=== PATIENT | male | born 1940 | race Caucasian/White ===

== ENCOUNTER 2017-07-12 09:26 | Observation (INO) ==
--- NOTE | 2017-07-12 09:55 | Emergency Department Note ---
Disposition Clinical Impression: COPD exacerbation, Hypokalemia Disposition: Admitted As Inpatient Condition: Good Forms: ED Satisfaction Letter Time of Disposition: 12:07 SOB HPI - General Chief Complaint: ED Shortness of Breath/Dyspnea Stated Complaint: TOMAS Time Seen by Provider: 07/12/17 09:36 Source: patient Limitations: no limitations Nursing Notes Reviewed: Yes Vital Signs Reviewed: Yes - History of Present Illness 76 year old male with history of COPD prsenst to the eD withh complaints of chest discomfort that is difficult to describe and states that he has been couhgin up white/clear phlegm without fever or hempotysis. although he is trahcyardiac to 108 at [facility] and has audible wheezes posterioerly. PAtinet states that this is simliar to the way he prsentsed when he had pneumonia/ bronchitis in the past. Lauranet states that he needed he supplemental oxygen at home to help with his dyspnea although he doenst typically need it on a regualr basis and has done brethign treatments at home without improvement. No exposure to the flu or any other sick contacts - Related Data Home Medications Medication Instructions Recorded Confirmed Albuterol Sulfate [Albuterol 1 - 2 puff IH Q4HR PRN 01/13/15 02/07/15 Inhaler] Aspirin Enteric Coated [Aspirin EC] 81 mg PO QAM 01/13/15 02/07/15 Iron/Lysine/Vit B Comp/FA 237 ml PO BID PRN 01/13/15 02/07/15 [Nutrivit Liquid] Furosemide [Lasix] 40 mg PO DAILY 02/07/15 02/07/15 Previous Rx's Medication Instructions Recorded Ipratropium/Albuterol Neb [Duoneb] 3 ml IH Q6HR 30 Days vial.neb 02/11/15 PredniSONE 10 mg PO DAILY #30 tablet 02/11/15 Amoxicillin/Clavulanate [Augmentin] 875 mg PO BIDWM 12 Days tablet 02/13/15 Allergies Allergy/AdvReac Type Severity Reaction Status Date / Time No Known Allergies Allergy Verified 01/13/15 16:00 Constitutional: Denies: fever, chills, weakness, weight change Eyes: Denies: eye pain, eye discharge, vision change ENT ED: Denies: ear pain, throat pain, dental pain, hearing loss, epistaxis, congestion, dysphagia Cardiovascular: Reports: chest pain, palpitations. Denies: dyspnea on exertion , edema, syncope Respiratory: Reports: cough, wheezes. Denies: dyspnea, hemoptysis, stridor Gastrointestinal: Denies: abdominal pain, nausea, vomiting, diarrhea, constipation, hematemesis, melena, hematochezia Genitourinary: Denies: urgency, dysuria, frequency, hematuria Musculoskeletal: Denies: back pain, neck pain, arthralgia, myalgia Integumentary: Denies: rash, abrasion, lesions Neurological: Denies: headache, weakness, numbness, paresthesias, confusion, abnormal gait, vertigo Psychiatric: Denies: anxiety, depression, suicidal thoughts, homicidal thoughts , auditory hallucinations, visual hallucinations Endocrine: Denies: fatigue Hematological/Lymphatic: Denies: easy bleeding, easy bruising Allergic/Immunologic: Denies: facial swelling, urticaria Past Medical History - Past Medical History Medical history: Reports: COPD Surgical history: Reports: cholecystectomy, other Psychiatric history: Reports: no psych history - Social History Smoking Status: Current every day smoker Smokeless Tobacco Status: Yes Alcohol use: Reports: none Drug use: Reports: none Physical Exam - General Limitations: no limitations General appearance: alert, in no apparent distress - Head Head exam: atraumatic, normocephalic, normal inspection - Eye Eye exam: Present: normal appearance, PERRL, EOMI - Expanded Eye Exam Pupils: Bilateral: reactive - ENT ENT exam: normal exam, normal oropharynx, mucous membranes moist - Expanded ENT Exam External ear exam: Present: normal external inspection Mouth exam: Present: normal external inspection Teeth exam: Present: normal inspection Throat exam: Present: normal inspection - Neck Neck exam: Present: normal inspection, full ROM, trachea midline - Chest Chest inspection: Present: normal inspection, symmetric chest wall rise - Respiratory Respiratory exam: Present: normal lung sounds bilaterally, wheezes - Cardiovascular Cardiovascular exam: Present: normal rhythm, tachycardia, normal heart sounds - Abdominal Exam Abdominal exam: Present: soft, Non-Tender. Absent: tenderness, distention, guarding, rebound, rigidity - Extremities Exam Extremities exam: Present: normal inspection, full ROM. Absent: tenderness, pedal edema - Expanded Upper Extremity Exam Shoulder exam: Present: normal inspection, full ROM Arm exam: Present: normal inspection, full ROM Elbow exam: Present: normal inspection, full ROM Forearm/Wrist exam: Present: normal inspection, full ROM Hand exam: Present: normal inspection, full ROM Vascular exam: Normal: capillary refill, radial pulse - Expanded Lower Extremity Exam Hip/Pelvis exam: Present: normal inspection, full ROM Upper leg exam: Present: normal inspection, full ROM Knee exam: Present: normal inspection, full ROM Lower leg exam: Present: normal inspection, full ROM Ankle exam: Present: normal inspection, full ROM Foot/toe exam: Present: normal inspection, full ROM Neurovascular/Tendon exam: Absent: motor deficit, sensory deficit, tendon deficit - Back Exam Back exam: Present: normal inspection, full ROM. Absent: tenderness - Neurological Exam Neurological exam: Present: alert, oriented X3 - Expanded Neurological Exam Patient oriented to: Present: person, place, time Coma Scale Eye Opening: Spontaneous Coma Scale Motor Response: Obeys Commands Coma Scale Verbal Response: Oriented Coma Scale Total: 15 - Psychiatric Psychiatric exam: Present: normal affect, normal mood - Skin Skin exam: Present: warm, dry, intact, normal color Course Course Narrative: we iwll do breathing treatmnts, solumedrol. and CTA chest to rule out PN vs PE. - Consultations Consultation #1: discussed case with Dr. Sanchez and he accepts ptinet for admission. PAtine has been updated and is agreeable to plan. Time: 12:07 Vital Signs Temperature 98.0 F 07/12/17 09:29 Pulse Rate 108 07/12/17 09:29 Respiratory Rate 24 07/12/17 09:29 Blood Pressure 125/75 07/12/17 09:29 O2 Sat by Pulse Oximetry 95 07/12/17 09:29 Temperature 98.0 F 07/12/17 09:29 Pulse Rate 65 07/12/17 11:07 Respiratory Rate 20 07/12/17 11:07 Blood Pressure 136/75 07/12/17 11:07 O2 Sat by Pulse Oximetry 97 07/12/17 11:07 Oxygen Delivery Oxygen Delivery Room Air Shortness of Breath/Dyspnea - Medical Records Medical records reviewed: Yes I reviewed the patient's medical records. - Lab Data Lab results reviewed: Yes I reviewed the patient's lab results. Result diagrams: 07/12/17 10:02 07/12/17 10:02 Lab Results 07/12/17 07/12/17 07/12/17 Range/Units 10:02 10:02 10:02 WBC 9.2 (4.3-11.1) K/mcL RBC 5.47 (4.19-5.50) M/mcL Hgb 17.1 H (12.9-16.9) g/dL Hct 51.2 H (37.5-50.1) % MCV 93.6 (83.0-100.0) fL MCH 31.3 (28.0-33.3) pg MCHC 33.4 (31.6-35.5) g/dL RDW 14.6 H (11.5-14.5) % Plt Count 222 (140-400) K/mcL MPV 8.9 L (9.4-12.4) fL Immature Gran % 0.4 (0-4) % Seg Neutrophils % 82.7 % Lymphocytes % 12.0 % Monocytes % 1.6 % Eosinophils % 2.9 % Basophils % 0.4 % Neutrophils # 7.6 (1.6-8.9) K/mcL Lymphocytes # 1.1 (0.6-4.6) K/mcL Monocytes # 0.2 (0.0-1.3) K/mcL Eosinophils # 0.3 (0.0-0.6) K/mcL Basophils # 0.0 (0.0-0.2) K/mcL PT 11.3 (9.4-12.1) Seconds INR 1.1 APTT 30.0 (26.0-36.0) Seconds Sodium 138 (136-145) mEq/L Potassium 2.9 L (3.5-5.1) mEq/L Chloride 101 (98-107) mEq/L Carbon Dioxide 30 H (23-29) mEq/L BUN 9 (8-23) mg/dL Creatinine 1.20 (0.70-1.30) mg/dL Est GFR ( Amer) > 60 (> 60) Est GFR (Non-Af Amer) 59 L (> 60) BUN/Creatinine Ratio 8 (6-26) Glucose 146 H (70-105) mg/dL Calculated Osmolality 287 (280-300) Calcium 9.0 (8.6-10.3) mg/dL Troponin I (< 0.04) ng/mL 07/12/17 Range/Units 10:02 WBC (4.3-11.1) K/mcL RBC (4.19-5.50) M/mcL Hgb (12.9-16.9) g/dL Hct (37.5-50.1) % MCV (83.0-100.0) fL MCH (28.0-33.3) pg MCHC (31.6-35.5) g/dL RDW (11.5-14.5) % Plt Count (140-400) K/mcL MPV (9.4-12.4) fL Immature Gran % (0-4) % Seg Neutrophils % % Lymphocytes % % Monocytes % % Eosinophils % % Basophils % % Neutrophils # (1.6-8.9) K/mcL Lymphocytes # (0.6-4.6) K/mcL Monocytes # (0.0-1.3) K/mcL Eosinophils # (0.0-0.6) K/mcL Basophils # (0.0-0.2) K/mcL PT (9.4-12.1) Seconds INR APTT (26.0-36.0) Seconds Sodium (136-145) mEq/L Potassium (3.5-5.1) mEq/L Chloride (98-107) mEq/L Carbon Dioxide (23-29) mEq/L BUN (8-23) mg/dL Creatinine (0.70-1.30) mg/dL Est GFR ( Amer) (> 60) Est GFR (Non-Af Amer) (> 60) BUN/Creatinine Ratio (6-26) Glucose (70-105) mg/dL Calculated Osmolality (280-300) Calcium (8.6-10.3) mg/dL Troponin I < 0.03 (< 0.04) ng/mL - Radiology Data Radiology results reviewed: Yes I reviewed the patient's radiology results. - EKG Data EKG attestation: Yes I reviewed and interpreted this EKG. EKG results narrative: sinus tacycardia with rate of 108. NO STEMI. normal intervals. no change from
[2017-07-12] MEDS ORDERED: 0.9 % Sodium Chloride 1,000 ML IVC ONE (09:59)
[2017-07-12] MEDS ORDERED: Ipratropium/Albuterol Neb 3 ML IH ONE (09:59)
[2017-07-12] MEDS ORDERED: methylPREDNISolone 125 MG/2 ML VIAL IVP ONE (09:59)
[2017-07-12 10:22] LABS: Basophils % 0.4 %; Eosinophils # 0.3 K/mcL (0.0-0.6); Eosinophils % 2.9 %; Hematocrit 51.2 % (37.5-50.1); Hemoglobin 17.1 g/dL (12.9-16.9); Immature Granulocytes % 0.4 % (0-4); Lymphocytes # 1.1 K/mcL (0.6-4.6); Mean Corpuscular HGB Conc 33.4 g/dL (31.6-35.5); Mean Corpuscular Hemoglobin 31.3 pg (28.0-33.3); Mean Corpuscular Volume 93.6 fL (83.0-100.0); Mean Platelet Volume 8.9 fL (9.4-12.4); Monocytes # 0.2 K/mcL (0.0-1.3); Monocytes % 1.6 %; Neutrophils # 7.6 K/mcL (1.6-8.9); Platelet Count 222 K/mcL (140-400); Red Blood Count 5.47 M/mcL (4.19-5.50); Red Cell Distribution Width 14.6 % (11.5-14.5); Segmented Neutrophils % 82.7 %
[2017-07-12 10:25] LABS: INR 1.1; Prothrombin Time 11.3 Seconds (9.4-12.1)
[2017-07-12 10:35] LABS: BUN/Creatinine Ratio 8 (6-26); Blood Urea Nitrogen 9 mg/dL (8-23); Carbon Dioxide 30 mEq/L (23-29); Chloride 101 mEq/L (98-107); Glucose 146 mg/dL (70-105); Osmolality,Calculated 287 (280-300); Potassium 2.9 mEq/L (3.5-5.1); Sodium 138 mEq/L (136-145); eGFR For African Americans > 60 (> 60); eGFR For Non-African Americans 59 (> 60)
[2017-07-12] MEDS ORDERED: Naloxone 0.4 MG/ML INJ IVP PRN (14:07)
[2017-07-12] MEDS ORDERED: Potassium Chloride 20 MEQ, Lidocaine 1% 2 ML in D5% in Water 250 ML IVPB ONE (14:20)
[2017-07-12] MEDS ORDERED: Levofloxacin 750 MG/150 ML 750 MG/150 ML BAG IVPB SCH (15:00)
[2017-07-12] MEDS: MethylPREDNISolone 40 MG/ML VIAL IVP SCH ×2 (15:06→23:02)
--- NOTE | 2017-07-12 15:35 | Internal Med History&Physical ---
<Rickie Loera - Last Filed: 07/12/17 19:36> Date of Encounter: 07/12/17 Time of Encounter: 13:30 Assessment and Plan (1) Acute exacerbation of chronic obstructive airways disease Current visit: Yes Status: Acute Acute exacerbation of COPD. CTA of chest negative for PE. Solumedrol 40 mg Q8. DuoNebs Q6 scheduled. Mucinex PO for cough. Levaquin for bronchitis infection coverage. Sputum culture and respiratory infection panel ordered. Will adjust abx coverage if warranted. Supplemental O2 w/titration and SpO2 monitoring. Continuous tele. Patient discussed with Dr. Sanchez is in agreement with plan of care. Patient is at high risk for respiratory distress/failure and further morbidity based on current symptoms, long-term history of COPD, current tobacco abuse, history, and risk factors. Observation. (2) Loss of appetite Current visit: Yes Status: Acute Acute MARY over the past several weeks. Pt. and sister report reduced intake. Monitor I&O and daily weight. Nutrition consult ordered for PO supplementation. Pt. reports liking chocolate Ensure. Regular diet. (3) Hypokalemia Current visit: Yes Status: Acute Acute hypokalemia w/potassium of 2.9 on admission. Patient given 40 by mouth mEq of potassium in ED. 20 mEq IVPB potassium w/lidocaine to f/u. Potassium level at 16:00. Will add 40 PO mEq additional if needed. Monitor pt. and f/u labs. Continuous tele. (4) Abnormal chest xray Current visit: Yes Status: Acute 1-V CXR today shows suspected scarring within the right upper lung. No focal infiltrate. Small left pleural effusion versus pleural parenchymal scarring. Monitor on OP basis. (5) DVT prophylaxis Current visit: Yes Status: Acute Heparin 5000 units subcutaneous every 8 for DVT prophylaxis. Monitor patient for signs of bleeding. Internal Medicine - H&P: HPI Chief complaint: SOB/Dyspnea Admitted From: Emergency Dept Plans for Post Hospital Care: Home History of present illness: Mr. Menjivar is a 76 year old male w/medical hx of COPD presents from the ED w/ chief complaint of shortness of breath and dyspnea that began on Tuesday and worsened last night. Patient reports from oxygen use via nasal cannula at 2 L. Patient also reported pressure in centralized chest without radiation as well as cough with white sputum production. Uses nebulizer at home. Patient reports shortness of breath, dyspnea, unsteadiness on his feet, cough, and reduced appetite but denies recent illness, fever, chills, nausea, vomiting, palpitations, headache, changes in vision, unusual bleeding, numbness, tingling , weakness, fatigue, dizziness, lightheadedness, pre-syncope, or syncope. Past Med Surg Social Fam HX - Past Medical History Source: patient, old records reviewed, obtained from family Medical history: COPD Psychiatric history: no psych history - Past Surgical History Surgical History: cholecystectomy, other - Social History Smoking Status: Current every day smoker Packs per day: 1 PPD Smokeless Tobacco Status: Yes Alcohol use: none Drug use: none Occupational status: retired Current living situation: Home, With Family Activity Level: Independent ambulation Recent Out of Country Travel Within the Last 8 Weeks: No Exposure or Possible Exposure to Illness During Travel: No - Family History Mother Race: Family Member Ethnicity: Non- Living Status: Age at : 56 Cause of : Liver cancer Hx Family Cancer: Yes (Liver) Hx Family Endocrine Disorder: Yes (Gallstones) Father Race: Family Member Ethnicity: Non- Living Status: Age at : 74 Cause of : Stroke complications Hx Family Cardiac Disorders: Yes (Stroke) Brother Race: Family Member Ethnicity: Non- Living Status: Age at : 75 Cause of : Surgery complications Hx Family Endocrine Disorder: Yes (Gallstones) Sister Race: Family Member Ethnicity: Non- Living Status: Still Living Hx Family Cardiac Disorders: Yes (Stroke) Internal Medicine - H&P: Meds Albuterol Sulfate [Albuterol Inhaler] 1 - 2 puff IH Q4HR PRN 01/13/15 [History] Aspirin Enteric Coated [Aspirin EC] 81 mg PO QAM 01/13/15 [History] Ipratropium/Albuterol Neb [Duoneb] 3 ml IH Q6HR 30 Days vial.neb 02/11/15 [Rx] Fluticasone/Vilanterol [Breo Ellipta 100-25 Mcg INH] 1 puff IH DAILY 07/12/17 [ History] Isosorbide DInitrate [Isosorbide Dinitrate] 10 mg PO BID 07/12/17 [History] 3 Allergy/AdvReac Type Severity Reaction Status Date / Time No Known Allergies Allergy Verified 01/13/15 16:00 All Systems PM: A 10-system review of systems was performed and is negative for pertinent findings except as documented above in the HPI. - Constitutional Constitutional: as per HPI, anorexia, no chills, no fever(s), no night sweats - EENT Eyes: no change in vision, no discharge, no pain, no photophobia Ears: no ear discharge, no ear pain, no tinnitus Nose, mouth and throat: no dysphagia, no nasal discharge, no neck pain, no sore throat - Breasts Breasts: as per HPI - Cardiovascular Cardiovascular ROS IM: as per HPI, dyspnea, dyspnea on exertion, no chest pain ( Chest pressure w/SOB), no diaphoresis, no lightheadedness, no palpitations, no syncope - Respiratory Respiratory: as per HPI, cough, dyspnea, dyspnea on exertion, wheezing, pain on inspiration, no excessive phlegm production - Gastrointestinal Gastrointestinal: as per HPI, diarrhea (R/t Crohn's dx), no abdominal pain, no hematemesis, no hematochezia, no melena, no nausea, no vomiting - Genitourinary Genitourinary ROS male: as per HPI - Musculoskeletal Musculoskeletal ROS IM: no numbness, no tingling - Integumentary Integumentary IM: no rash, no unusual bruising - Neurological Neurological ROS: as per HPI, frequent falls, no confusion, no convulsions, no focal weakness, no numbness, no tingling, no tremor(s) - Psychiatric Psychiatric: as per HPI - Endocrine Endocrine IM: as per HPI - Hematologic/Lymphatic Hematologic/Lymphatic: no easy bruising - Allergic/Immunologic Allergic/Immunologic: as per HPI - Constitutional Vitals: Temp Pulse Resp BP Pulse Ox 98.2 F 86 16 128/60 94 07/12/17 14:12 07/12/17 14:12 07/12/17 14:12 07/12/17 14:12 07/12/17 14:12 General appearance: Present: cooperative, A&O X 3, pleasant, no acute distress, answers questions appropriately - Head Head exam: Present: atraumatic, normocephalic - Eye Eye exam: Present: PERRL, conjuntiva pink, sclera anicteric Pupils: Present: PERRL - ENT ENT exam: Present: normal exam - Neck Neck exam general surgery: Present: supple, trachea midline. Absent: lymphadenopathy - Respiratory Respiratory exam: Present: accessory muscle use, wheezes (Bilaterally all lobes) . Absent: rales, rhonchi - Cardiovascular Cardiovascular exam: Present: +S1, +S2, tachycardia. Absent: diastolic murmur, gallop, rubs, systolic murmur - GI/Abdominal GI/Abdominal exam: Present: normal bowel sounds, soft, no peritoneal signs. Absent: distended, tenderness - Rectal Rectal exam: Present: deferred - Additional comments: exam deferred. - Extremities Exam Extremities exam: Present: warm, radial pulses palpable and symmetrical. Absent : calf tenderness, cyanotic, pedal edema - Back Exam Back exam: Present: normal inspection - Neurological Exam Neurological exam: Present: CN II-XII intact, oriented X3, no focal deficits. Absent: pronater drift, facial droop, speech deficit - Psychiatric Psychiatric exam: Present: normal affect, normal mood - Skin Skin exam: Present: dry, intact Internal Med - H&P Results - Labs CBC & Chem 7: 07/12/17 10:02 07/12/17 16:04 - EKG Data EKG shows normal: sinus rhythm Rate: tachycardia - EKG Data Prior EKG available for review: yes Interpretation IM: suggestive of ischemia EKG comments: 07/12/17 15:41 EKG dated 02/07/15 shows NSR, PACs. EKG dated 07/12/17 shows sinus tachycardia, indeterminate axis, possible inferior myocardial infarction (probably old). - Diagnostic Studies Chest x-ray Additional comments: Impressions Chest X-Ray 07/12/17 09:39 IMPRESSION: 1. Suspected scarring within the right upper lung. No focal infiltrate. 2. Small left pleural effusion versus pleuroparenchymal scarring. D/ / Umberto Howard MD / Umberto Howard MD Interpreting Provider: Umberto Howard MD Other Images Additional comments: Impressions Chest CTA 07/12/17 09:39 IMPRESSION: 1. No evidence for acute pulmonary embolism. 2. Moderate centrilobular emphysema with generalized patchy ground-glass attenuation of the lungs suggesting air trapping. 3. Residual pleural-parenchymal fibrotic areas in the right upper lobe and posterior basal lower lobes where there is minor traction bronchiectasis. D/ / Nikko Rivera MD / Nikko Rivera MD Interpreting Provider: Nikko Rivera MD <Nasir Sanchez - Last Filed: 07/12/17 22:25> Date of Encounter: 07/12/17 Internal Medicine - H&P: HPI History of present illness: Mr. Menjivar is a 76 year old male All Systems PM: A 10-system review of systems was performed and is negative for pertinent findings except as documented above in the HPI. - Constitutional Vitals: Temp Pulse Resp BP Pulse Ox 98.1 F 88 17 156/73 95 07/12/17 19:07 07/12/17 19:07 07/12/17 21:24 07/12/17 19:07 07/12/17 21:24 Internal Med - H&P Results - Labs CBC & Chem 7: 07/12/17 10:02 07/12/17 16:04 Labs: BMP 07/12/17 16:04 Potassium 3.5 Cardiac Enzymes 07/12/17 Range/Units 16:04 Troponin I < 0.03 (< 0.04) ng/mL - Attending Attestation I have personally performed a face to face evaluation on this patient. I have reviewed and agree with the care plan. History and Exam by me shows: Patient presented to the hospital for worsening shortness of breath for one day. He has a history of COPD. On exam he has bilateral expiratory wheezes and prolonged expiratory phase. Heart is regular. Abdomen is soft. There is no lower extremity edema. Plan: We will treat for COPD exacerbation with IV steroids, supplemental oxygen , inhaled albuterol and ipratropium and oral Levaquin. For hypokalemia will repeat with IV and oral potassium. Check potassium and magnesium level in the morning.
[2017-07-12] MEDS: Nicotine 14 MG PATCH.TD24 TD SCH (15:38)
[2017-07-12] MEDS: Ipratropium/Albuterol Neb 3 ML IH SCH ×2 (15:55→21:23)
[2017-07-12] MEDS: *HR* Heparin 5,000 UNIT/ML VIAL SQ SCH (20:13)
[2017-07-13] MEDS: Ipratropium/Albuterol Neb 3 ML IH SCH ×4 (03:54→21:20)
[2017-07-13] MEDS: *HR* Heparin 5,000 UNIT/ML VIAL SQ SCH ×3 (05:17→23:04)
[2017-07-13 05:24] LABS: Basophils % 0.1 %; Immature Granulocytes % 0.6 % (0-4); Lymphocytes # 0.5 K/mcL (0.6-4.6); Lymphocytes % 5.9 %; Mean Corpuscular Hemoglobin 31.4 pg (28.0-33.3); Mean Corpuscular Volume 92.5 fL (83.0-100.0); Mean Platelet Volume 9.5 fL (9.4-12.4); Monocytes # 0.1 K/mcL (0.0-1.3); Neutrophils # 7.5 K/mcL (1.6-8.9); Platelet Count 180 K/mcL (140-400); Red Blood Count 4.65 M/mcL (4.19-5.50); Red Cell Distribution Width 14.7 % (11.5-14.5); Segmented Neutrophils % 92.4 %
[2017-07-13 05:26] LABS: Hemoglobin 14.6 g/dL (12.9-16.9)
[2017-07-13 05:40] LABS: Hemoglobin A1C 5.5 %
[2017-07-13 05:47] LABS: Alanine Aminotransferase 8 Units/L (7-52); Albumin 3.3 g/dL (3.5-5.7); Albumin/Globulin Ratio 1.3 (1.1-2.2); Alkaline Phosphatase 57 Units/L (34-104); Aspartate Amino Transferase 10 Units/L (13-39); BUN/Creatinine Ratio 10 (6-26); Bilirubin,Total 0.4 mg/dL (0.3-1.0); Blood Urea Nitrogen 13 mg/dL (8-23); Calcium 8.5 mg/dL (8.6-10.3); Carbon Dioxide 23 mEq/L (23-29); Chloride 108 mEq/L (98-107); Chol/HDL Ratio 2.4 (0-4.9); Cholesterol 98 mg/dL (< 200); Globulin 2.6 g/dL (2.4-3.5); Glucose 219 mg/dL (70-105); HDL Cholesterol 41 mg/dL (40-59); LDL Cholesterol,Calculated 38 mg/dL (0-99); Magnesium 1.7 mg/dL (1.6-2.6); Osmolality,Calculated 291 (280-300); Sodium 137 mEq/L (136-145); Total Protein 5.9 g/dL (6.4-8.9); Triglycerides 94 mg/dL (< 150); eGFR For African Americans > 60 (> 60); eGFR For Non-African Americans 56 (> 60)
[2017-07-13] MEDS: MethylPREDNISolone 40 MG/ML VIAL IVP SCH ×3 (08:03→23:04)
[2017-07-13] MEDS: Aspirin Enteric Coated 81 MG Tablet PO SCH (08:03)
[2017-07-13] MEDS: Nicotine 14 MG PATCH.TD24 TD SCH (08:03)
--- NOTE | 2017-07-13 09:12 | Electrocardiograph Report ---
[place] GFRANQ Test Date: 2017-07-12 Pat Name: Bienvenido Menjivar Department: 104 Room: 3B38 Gender: M Statistics Intern: [facility] : 1940 Requested By: Shruthi Oreilly Order Number: [id number] Reading MD: David Quiros MD Measurements Intervals [place] Rate: 104 P: 77 NM: 188 QRS: 96 QRSD: 97 T: 79 QT: 354 QTc: 414 Interpretive Statements SINUS TACHYCARDIA INDETERMINATE AXIS POSSIBLE INFERIOR MYOCARDIAL INFARCTION, PROBABLY OLD ABNORMAL RHYTHM ECG ST depression laterally, consider ischemia, correlate clinically Electronically Signed On 07-13-2017 9:10:44 EST by David Quiros MD
--- NOTE | 2017-07-13 09:19 | Internal Med Progress Note ---
Date of Encounter: 07/13/17 Time of Encounter: 09:15 - Assessment and plan (1) Acute exacerbation of chronic obstructive airways disease Current Visit: Yes Status: Acute Assessment and plan: Assessment patient does have audible wheezes and conversational dyspnea CTA chest negative for any PE. Initiated on Solu-Medrol 40 mg every 8 which we will continue. Mucinex by mouth for cough Levaquin for bronchitis infection coverage Sputum culture, and respiratory panel Oxygen as needed titrating to maintain SPO2 greater than 92% (2) Hypokalemia Current Visit: Yes Status: Acute Assessment and plan: Presently 4.0 this a.m. we will continue to monitor and replace as needed (3) Abnormal chest xray Current Visit: Yes Status: Acute Assessment and plan: 1-V CXR today shows suspected scarring within the right upper lung. No focal infiltrate. Small left pleural effusion versus pleural parenchymal scarring. Monitor on outpatient basis. (4) Loss of appetite Current Visit: Yes Status: Acute Assessment and plan: Acute MARY the past several weeks and monitor intake and output daily weights nutrition consult ordered for by mouth supplementation regular diet. (5) DVT prophylaxis Current Visit: Yes Status: Acute Assessment and plan: Heparin subcutaneous - Time Spent With Patient less than 15 minutes - Subjective Interval history: having SOB on exertion noted conversational dyspnes, denies any CP has nonproductive cough Feels a little better not back at baseline - Constitutional Vitals: Temp Pulse Resp BP Pulse Ox 97.2 F L 62 15 157/75 94 07/13/17 07:17 07/13/17 07:17 07/13/17 07:17 07/13/17 07:17 07/13/17 07:17 General appearance: Present: cooperative, A&O X 3, pleasant, no acute distress, answers questions appropriately - Head Head exam: Present: atraumatic, normocephalic - Eye Eye exam: Present: PERRL, conjuntiva pink, sclera anicteric Pupils: Present: PERRL - Neck Neck exam general surgery: Present: supple, trachea midline. Absent: lymphadenopathy - Respiratory Respiratory exam: Present: wheezes. Absent: accessory muscle use, rales, rhonchi - Cardiovascular Cardiovascular exam: Present: RRR, +S1, +S2. Absent: diastolic murmur, gallop, rubs, systolic murmur - GI/Abdominal GI/Abdominal exam: Present: normal bowel sounds, soft, no peritoneal signs. Absent: distended, tenderness - Extremities Exam Extremities exam: Present: warm, radial pulses palpable and symmetrical. Absent : calf tenderness, cyanotic, pedal edema - Neurological Exam Neurological exam: Present: CN II-XII intact, oriented X3, no focal deficits. Absent: pronater drift, facial droop, speech deficit - Skin Skin exam: Present: dry, intact Internal Medicine: Result - Labs CBC & Chem 7: 07/13/17 04:44 07/13/17 04:44 Labs: Short CBC 07/13/17 Range/Units 04:44 WBC 8.1 (4.3-11.1) K/mcL Hgb 14.6 D (12.9-16.9) g/dL Hct 43.0 (37.5-50.1) % Plt Count 180 (140-400) K/mcL Neutrophils # 7.5 (1.6-8.9) K/mcL BMP 07/12/17 07/13/17 16:04 04:44 Sodium 137 Potassium 3.5 4.0 Chloride 108 H Carbon Dioxide 23 BUN 13 Creatinine 1.24 Glucose 219 H Calcium 8.5 L Cardiac Enzymes 07/12/17 07/12/17 Range/Units 16:04 22:18 Troponin I < 0.03 < 0.03 (< 0.04) ng/mL Liver Function 07/13/17 Range/Units 04:44 Total Bilirubin 0.4 (0.3-1.0) mg/dL AST 10 L (13-39) Units/L ALT 8 (7-52) Units/L Alkaline Phosphatase 57 (34-104) Units/L Albumin 3.3 L (3.5-5.7) g/dL - ABG Interpretation ABG results: PT/INR, D-dimer PT 11.3 Seconds (9.4-12.1) 07/12/17 10:02 Consult Discharge Plan - Plan Referrals: Jono Moon DO [Primary Care Provider] -
[2017-07-13] MEDS: (Fluticasone/Vilanterol [Breo Ellipta 100-25 Mcg Inh]) IH SCH (09:40)
[2017-07-13 19:27] LABS: Adenovirus Not Detected (Not Detect); Bordetella Pertussis Not Detected (Not Detect); Chlamydophila pneumoniae Not Detected (Not Detect); Coronavirus 229E Not Detected (Not Detect); Coronavirus HKU1 Not Detected (Not Detect); Coronavirus NL63 Not Detected (Not Detect); Coronavirus OC43 Not Detected (Not Detect); Human Metapneumovirus Not Detected (Not Detect); Human Rhinovirus/Enterovirus Not Detected (Not Detect); Influenza A Subtype 2009 H1 Not Detected (Not Detect); Influenza A Untypeable Not Detected (Not Detect); Influenza B Not Detected (Not Detect); Mycoplasma pneumoniae Not Detected (Not Detect); Parainfluenza Virus 1 Not Detected (Not Detect); Parainfluenza Virus 2 Not Detected (Not Detect); Parainfluenza Virus 3 Not Detected (Not Detect); Parainfluenza Virus 4 Not Detected (Not Detect); Respiratory Syncytial Virus Not Detected (Not Detect)
[2017-07-14] MEDS: Ipratropium/Albuterol Neb 3 ML IH SCH ×5 (04:03→23:19)
[2017-07-14] MEDS: *HR* Heparin 5,000 UNIT/ML VIAL SQ SCH ×3 (05:13→21:35)
[2017-07-14] MEDS: MethylPREDNISolone 40 MG/ML VIAL IVP SCH ×3 (09:23→21:35)
[2017-07-14] MEDS: Nicotine 14 MG PATCH.TD24 TD SCH (09:23)
[2017-07-14] MEDS: Aspirin Enteric Coated 81 MG Tablet PO SCH (09:23)
--- NOTE | 2017-07-14 09:23 | Internal Med Progress Note ---
Date of Encounter: 07/14/17 Time of Encounter: 09:20 - Assessment and plan (1) Acute exacerbation of chronic obstructive airways disease Current Visit: Yes Status: Acute Assessment and plan: Scattered wheezes throughout CTA chest negative for any PE. Solu-Medrol 40 mg every 8 which we will continue. Mucinex by mouth for cough Levaquin for bronchitis infection coverage Sputum culture, and respiratory panel Oxygen as needed titrating to maintain SPO2 greater than 92% (2) Hypokalemia Current Visit: Yes Status: Acute Assessment and plan: monitor and replace (3) Abnormal chest xray Current Visit: Yes Status: Acute Assessment and plan: 1-V CXR today shows suspected scarring within the right upper lung. No focal infiltrate. Small left pleural effusion versus pleural parenchymal scarring. Monitor on outpatient basis. (4) Loss of appetite Current Visit: Yes Status: Acute Assessment and plan: Acute MARY the past several weeks eating well here monitor intake and output daily weights - no weight loss nutrition consult ordered for dietary supplementation regular diet. (5) DVT prophylaxis Current Visit: Yes Status: Acute Assessment and plan: Heparin subcutaneous - Time Spent With Patient less than 15 minutes - Subjective Interval history: having SOB on exertion, denies any CP has nonproductive cough Feels a little better not back at baseline - Constitutional Vitals: Temp Pulse Resp BP Pulse Ox 97.6 F 59 16 166/61 95 07/14/17 06:44 07/14/17 06:44 07/14/17 06:44 07/14/17 06:44 07/14/17 03:11 General appearance: Present: cooperative, A&O X 3, pleasant, no acute distress, answers questions appropriately - Head Head exam: Present: atraumatic, normocephalic - Eye Eye exam: Present: PERRL, conjuntiva pink, sclera anicteric Pupils: Present: PERRL - Neck Neck exam general surgery: Present: supple, trachea midline. Absent: lymphadenopathy - Respiratory Respiratory exam: Present: wheezes. Absent: accessory muscle use, rales, rhonchi - Cardiovascular Cardiovascular exam: Present: RRR, +S1, +S2. Absent: diastolic murmur, gallop, rubs, systolic murmur - GI/Abdominal GI/Abdominal exam: Present: normal bowel sounds, soft, no peritoneal signs. Absent: distended, tenderness - Extremities Exam Extremities exam: Present: warm, radial pulses palpable and symmetrical. Absent : calf tenderness, cyanotic, pedal edema - Neurological Exam Neurological exam: Present: CN II-XII intact, oriented X3, no focal deficits. Absent: pronater drift, facial droop, speech deficit - Skin Skin exam: Present: dry, intact Internal Medicine: Result - Labs CBC & Chem 7: 07/13/17 04:44 07/13/17 04:44 - ABG Interpretation ABG results: PT/INR, D-dimer PT 11.3 Seconds (9.4-12.1) 07/12/17 10:02 Consult Discharge Plan - Plan Referrals: Jono Moon DO [Primary Care Provider] -
[2017-07-14] MEDS: (Fluticasone/Vilanterol [Breo Ellipta 100-25 Mcg Inh]) IH SCH (09:24)
[2017-07-14 11:02] LABS: Basophils % 0.1 %; Hematocrit 42.2 % (37.5-50.1); Hemoglobin 14.2 g/dL (12.9-16.9); Immature Granulocytes % 0.6 % (0-4); Lymphocytes # 0.6 K/mcL (0.6-4.6); Lymphocytes % 5.4 %; Mean Corpuscular HGB Conc 33.6 g/dL (31.6-35.5); Mean Corpuscular Hemoglobin 31.8 pg (28.0-33.3); Mean Corpuscular Volume 94.4 fL (83.0-100.0); Mean Platelet Volume 9.7 fL (9.4-12.4); Monocytes # 0.2 K/mcL (0.0-1.3); Neutrophils # 10.7 K/mcL (1.6-8.9); Platelet Count 205 K/mcL (140-400); Red Blood Count 4.47 M/mcL (4.19-5.50); Red Cell Distribution Width 15.1 % (11.5-14.5); Segmented Neutrophils % 91.9 %
[2017-07-14 11:29] LABS: Alanine Aminotransferase 10 Units/L (7-52); Albumin 3.2 g/dL (3.5-5.7); Albumin/Globulin Ratio 1.2 (1.1-2.2); Alkaline Phosphatase 53 Units/L (34-104); Aspartate Amino Transferase 13 Units/L (13-39); BUN/Creatinine Ratio 15 (6-26); Bilirubin,Total 0.3 mg/dL (0.3-1.0); Blood Urea Nitrogen 18 mg/dL (8-23); Calcium 8.7 mg/dL (8.6-10.3); Carbon Dioxide 28 mEq/L (23-29); Chloride 105 mEq/L (98-107); Globulin 2.6 g/dL (2.4-3.5); Glucose 157 mg/dL (70-105); Osmolality,Calculated 293 (280-300); Potassium 3.9 mEq/L (3.5-5.1); Sodium 139 mEq/L (136-145); Total Protein 5.8 g/dL (6.4-8.9); eGFR For African Americans > 60 (> 60); eGFR For Non-African Americans 57 (> 60)
[2017-07-14] MEDS ORDERED: Levofloxacin 750 MG/150 ML 750 MG/150 ML BAG IVPB SCH (15:00)
[2017-07-14] MEDS ORDERED: hydrALAZINE 10 MG TABLET PO ONE (21:03)
[2017-07-15] MEDS: Ipratropium/Albuterol Neb 3 ML IH SCH ×6 (03:51→23:10)
[2017-07-15] MEDS: *HR* Heparin 5,000 UNIT/ML VIAL SQ SCH ×3 (05:23→22:07)
[2017-07-15] MEDS: MethylPREDNISolone 40 MG/ML VIAL IVP SCH ×2 (05:23→16:48)
[2017-07-15 06:02] LABS: Basophils % 0.1 %; Hematocrit 46.9 % (37.5-50.1); Hemoglobin 15.6 g/dL (12.9-16.9); Immature Granulocytes % 1.1 % (0-4); Lymphocytes # 0.4 K/mcL (0.6-4.6); Lymphocytes % 3.6 %; Mean Corpuscular HGB Conc 33.3 g/dL (31.6-35.5); Mean Corpuscular Hemoglobin 31.8 pg (28.0-33.3); Mean Corpuscular Volume 95.5 fL (83.0-100.0); Mean Platelet Volume 9.5 fL (9.4-12.4); Monocytes # 0.1 K/mcL (0.0-1.3); Monocytes % 1.2 %; Neutrophils # 10.6 K/mcL (1.6-8.9); Platelet Count 210 K/mcL (140-400); Red Blood Count 4.91 M/mcL (4.19-5.50)
[2017-07-15 06:21] LABS: Alanine Aminotransferase 18 Units/L (7-52); Albumin 3.6 g/dL (3.5-5.7); Albumin/Globulin Ratio 1.3 (1.1-2.2); Alkaline Phosphatase 62 Units/L (34-104); Aspartate Amino Transferase 19 Units/L (13-39); BUN/Creatinine Ratio 18 (6-26); Bilirubin,Total 0.4 mg/dL (0.3-1.0); Blood Urea Nitrogen 24 mg/dL (8-23); Calcium 8.5 mg/dL (8.6-10.3); Carbon Dioxide 23 mEq/L (23-29); Chloride 101 mEq/L (98-107); Globulin 2.8 g/dL (2.4-3.5); Glucose 245 mg/dL (70-105); Osmolality,Calculated 296 (280-300); Potassium 3.7 mEq/L (3.5-5.1); Sodium 137 mEq/L (136-145); Total Protein 6.4 g/dL (6.4-8.9); eGFR For African Americans > 60 (> 60); eGFR For Non-African Americans 52 (> 60)
[2017-07-15] MEDS: Aspirin Enteric Coated 81 MG Tablet PO SCH (07:39)
[2017-07-15] MEDS: Nicotine 14 MG PATCH.TD24 TD SCH (07:39)
[2017-07-15] MEDS: (Fluticasone/Vilanterol [Breo Ellipta 100-25 Mcg Inh]) IH SCH (07:40)
[2017-07-15] MEDS ORDERED: 0.9 % Sodium Chloride 500 ML IVC ONE (14:46)
--- NOTE | 2017-07-15 14:57 | Discharge Summary ---
Date of Encounter: 07/16/17 Time of Encounter: 11:08 - Discharge Diagnosis (1) Acute exacerbation of chronic obstructive airways disease Priority: Primary Status: Acute Comments: Continue with bronchodilators at home Steroid taper Follow-up with primary care physician as outpatient (2) Hypokalemia Priority: Secondary Status: Chronic Comments: Resolved (3) Abnormal chest xray Priority: Secondary Status: Acute Comments: -V CXR shows suspected scarring within the right upper lung. No focal infiltrate. Small left pleural effusion versus pleural parenchymal scarring. Monitor on outpatient basis. (4) Loss of appetite Priority: Secondary Status: Acute Comments: Acute MARY the past several weeks he has been eating well during this stay- ensure supplements patient will follow up with primary care physician. (5) Elevated serum creatinine Priority: Secondary Status: Acute Comments: patient given fluid overnight creatinine trending down 1.31 encourage patient to drink fluids will have follow up lab as outpatient and have results sent to PCP - Discharge Medications Prescriptions: predniSONE [Prednisone] 10 mg PO DAILY #30 tab.ds.pk Home Medications: Albuterol Sulfate [Albuterol Inhaler] 1 - 2 puff IH Q4HR PRN 01/13/15 [History] Aspirin Enteric Coated [Aspirin EC] 81 mg PO QAM 01/13/15 [History] Ipratropium/Albuterol Neb [Duoneb] 3 ml IH Q6HR 30 Days vial.neb 02/11/15 [Rx] Fluticasone/Vilanterol [Breo Ellipta 100-25 Mcg INH] 1 puff IH DAILY 07/12/17 [ History] Isosorbide DInitrate [Isosorbide Dinitrate] 10 mg PO BID 07/12/17 [History] predniSONE [Prednisone] 10 mg PO DAILY #30 tab.ds.pk 07/15/17 [Rx] Allergies/Adverse Reactions: 3 Allergy/AdvReac Type Severity Reaction Status Date / Time No Known Allergies Allergy Verified 01/13/15 16:00 Procedures/tests Complete & Pending: Procedures Performed prior 72 hours Category Date Time Status EKG [ECG 12 lead ECG] [ECG] Routine Y 07/14/17 16:21 Ordered Date of admission: 07/12/17 12:38 Primary care physician: Jono Moon DO Consults: 07/12/17 14:10 Consult to Occupational Therapy [CONS] Routine Comment: Evaluate, develop and implement POC Reason for Consult: Patient reports unsteadiness on his feet with ambulation. Please assess patient for ambulation strength, stability, safety, and possible assistive needs for post-discharge planning. Consult to Remote Control Assembler [CONS] Routine Reason for SW Consult: Please assess patient for possible home needs for post -discharge planning. 07/12/17 14:11 Consult to Physical Therapy [CONS] Routine Comment: Evaluate, develop and implement POC Reason for Consult: Patient reports unsteadiness on his feet with ambulation. Please assess patient for ambulation strength, stability, safety, and possible assistive needs for post-discharge planning. 07/12/17 14:16 Consult to Nutrition [CONS] Routine Comment: Milk Chocolate or chocolate Ensure Consulting Provider: NUTRITION Reason for Dietary Consult: PO Supplementation Discharging clinician: Kaur Rivera Anticipated date of discharge: 07/16/17 - Patient Status Disposition: Home, Self-Care Condition: Good Overall status at discharge: patient is progressing back to baseline - Ambulatory Orders Ambulatory Orders: Basic Metabolic Panel [CHEM] Time Frame: 3 Days, Facility: [facility] [place], Location: Lab - Discharge Instructions Follow Up With: Jono Moon DO [Primary Care Provider] - 08/03/17 11:30 am Interval History: Presently his resp state is stable sats 94-95% His creatinine was slightly elevated however it appears it has been elevated in past. We will recheck as outpatient and have labs sent to PCP. Denies any pain in discomfort He is ambulating eating without difficulty Hospital course: Mr. Menjivar is a 76 year old male past medical history of COPD. According to the patient been experiencing increasing shortness of breath and then initiated on Tuesday and worsened Tuesday night. He has oxygen at home, does not normally use it however he required 2 L nasal cannula as well as using nebulizer treatments with little relief. He presented to the ER chest x-ray revealed suspected scarring in the right upper lung, CTA of chest with no acute pulmonary embolism moderate centrilobar emphysema with generalized patchy groundglass attenuation of the lung suggesting air trapping. Patient also reports appetite. Dietary was consulted for nutritional supplements, he was given IV steroids, Levaquin and bronchodilators. His respiratory state has improved. Presently he is able to ambulate with little shortness of breath maintaining oxygen saturation on room air. He will be discharged home on prednisone taper will follow up with his primary care physician after discharge. His creatinine was elevated howevr it appears it has been elevated in the past and it is trending down. We will have him check lab as out patient and have results sent to PCP. Did review medications and follow-ups with patient who verbalized understanding. Presently he is hemodynamically stable and ready for discharge. Time spent discussing smoking cessation with patient: 3 to 10 minutes - Time Spent with Patient Total time spent providing and/or coordinating discharge services: - Constitutional Vitals: Temp Pulse Resp BP Pulse Ox 97.5 F L 76 16 151/67 97 07/15/17 10:59 07/15/17 10:59 07/15/17 11:17 07/15/17 10:59 07/15/17 11:45 General appearance: Present: cooperative, A&O X 3, pleasant, no acute distress, answers questions appropriately - Head Head exam: Present: atraumatic, normocephalic - Eye Eye exam: Present: PERRL, conjuntiva pink, sclera anicteric Pupils: Present: PERRL - Neck Neck exam general surgery: Present: supple, trachea midline. Absent: lymphadenopathy - Respiratory Respiratory exam: Present: CTAB. Absent: accessory muscle use, rales, rhonchi, wheezes - Cardiovascular Cardiovascular exam: Present: RRR, +S1, +S2. Absent: diastolic murmur, gallop, rubs, systolic murmur - GI/Abdominal GI/Abdominal exam: Present: normal bowel sounds, soft, no peritoneal signs. Absent: distended, tenderness - Extremities Exam Extremities exam: Present: warm, radial pulses palpable and symmetrical. Absent : calf tenderness, cyanotic, pedal edema - Neurological Exam Neurological exam: Present: CN II-XII intact, oriented X3, no focal deficits. Absent: pronater drift, facial droop, speech deficit - Skin Skin exam: Present: dry, intact
[2017-07-15 17:05] LABS: Calcium 8.4 mg/dL (8.6-10.3); Carbon Dioxide 25 mEq/L (23-29); Chloride 104 mEq/L (98-107); Potassium 4.5 mEq/L (3.5-5.1); Sodium 136 mEq/L (136-145)
[2017-07-15 17:11] LABS: BUN/Creatinine Ratio 17 (6-26); Blood Urea Nitrogen 23 mg/dL (8-23); Glucose 253 mg/dL (70-105); Osmolality,Calculated 294 (280-300); eGFR For African Americans > 60 (> 60); eGFR For Non-African Americans 51 (> 60)
[2017-07-15] MEDS ORDERED: 0.9 % Sodium Chloride 1,000 ML IVC SCH (17:45)
[2017-07-15] MEDS ORDERED: *HR* Dextrose 50 % in Water (Syg) 50 ML SYRINGE IVP PRN (17:46)
[2017-07-15] MEDS ORDERED: D5% in Water 1,000 ML IVC PRN (17:46)
[2017-07-15] MEDS ORDERED: Dextrose Gel 15 GM/37.5 ML TUBE PO PRN ×2 (17:46)
--- NOTE | 2017-07-15 17:48 | Internal Med Progress Note ---
Date of Encounter: 07/15/17 Time of Encounter: 17:44 - Assessment and plan (1) Acute exacerbation of chronic obstructive airways disease Current Visit: Yes Status: Acute Assessment and plan: Lungs sounds are clear-shortness of breath will continue with steroid taper Mucinex by mouth for cough Levaquin for bronchitis infection coverage Sputum culture, and respiratory panel Oxygen as needed titrating to maintain SPO2 greater than 92% (2) Hypokalemia Current Visit: Yes Status: Chronic Assessment and plan: monitor and replace (3) Abnormal chest xray Current Visit: Yes Status: Acute Assessment and plan: 1-V CXR today shows suspected scarring within the right upper lung. No focal infiltrate. Small left pleural effusion versus pleural parenchymal scarring. Monitor on outpatient basis. (4) Loss of appetite Current Visit: Yes Status: Acute Assessment and plan: Acute MARY the past several weeks eating well here monitor intake and output daily weights - no weight loss nutrition consult ordered for dietary supplementation regular diet. (5) Elevated creatine kinase level Current Visit: Yes Status: Acute Assessment and plan: Has a rising creatinine 1.36 L some gentle IV fluids overnight and recheck in the morning Avoid nephrotoxins (6) Hyperglycemia, drug-induced Current Visit: Yes Status: Acute Assessment and plan: She has had a slight rise in blood sugars he is on steroids we will give a sliding scale for now - Subjective Interval history: Patient is doing well has been ambulating with little shortness of breath stable on room air 95% . Feels that he is back to baseline . Patient had a slight rise and creatinine will give IV fluids overnight and will avoid nephrotoxins. did discuss this with patient who verbalized understanding - Constitutional Vitals: Temp Pulse Resp BP Pulse Ox 98.3 F 90 14 158/75 100 07/15/17 16:08 07/15/17 16:08 07/15/17 16:08 07/15/17 16:08 07/15/17 16:08 General appearance: Present: cooperative, A&O X 3, pleasant, no acute distress, answers questions appropriately - Head Head exam: Present: atraumatic, normocephalic - Eye Eye exam: Present: PERRL, conjuntiva pink, sclera anicteric Pupils: Present: PERRL - Neck Neck exam general surgery: Present: supple, trachea midline. Absent: lymphadenopathy - Respiratory Respiratory exam: Present: CTAB. Absent: accessory muscle use, rales, rhonchi, wheezes - Cardiovascular Cardiovascular exam: Present: RRR, +S1, +S2. Absent: diastolic murmur, gallop, rubs, systolic murmur - GI/Abdominal GI/Abdominal exam: Present: normal bowel sounds, soft, no peritoneal signs. Absent: distended, tenderness - Extremities Exam Extremities exam: Present: warm, radial pulses palpable and symmetrical. Absent : calf tenderness, cyanotic, pedal edema - Neurological Exam Neurological exam: Present: CN II-XII intact, oriented X3, no focal deficits. Absent: pronater drift, facial droop, speech deficit - Skin Skin exam: Present: dry, intact Internal Medicine: Result - Labs CBC & Chem 7: 07/15/17 05:45 07/15/17 16:37 Labs: Short CBC 07/15/17 Range/Units 05:45 WBC 11.3 H (4.3-11.1) K/mcL Hgb 15.6 (12.9-16.9) g/dL Hct 46.9 (37.5-50.1) % Plt Count 210 (140-400) K/mcL Neutrophils # 10.6 H (1.6-8.9) K/mcL BMP 07/15/17 07/15/17 05:45 16:37 Sodium 137 136 Potassium 3.7 4.5 Chloride 101 104 Carbon Dioxide 23 25 BUN 24 H 23 Creatinine 1.33 H 1.36 H Glucose 245 H 253 H Calcium 8.5 L 8.4 L Liver Function 07/15/17 Range/Units 05:45 Total Bilirubin 0.4 (0.3-1.0) mg/dL AST 19 (13-39) Units/L ALT 18 (7-52) Units/L Alkaline Phosphatase 62 (34-104) Units/L Albumin 3.6 (3.5-5.7) g/dL - ABG Interpretation ABG results: PT/INR, D-dimer PT 11.3 Seconds (9.4-12.1) 07/12/17 10:02 Consult Discharge Plan - Plan Referrals: Jono Moon DO [Primary Care Provider] - 08/03/17 11:30 am Prescriptions: predniSONE [Prednisone] 10 mg PO DAILY #30 tab.ds.pk
[2017-07-15] MEDS ORDERED: Insulin LISPRO 300 UNITS/3 ML VIAL SQ SCH (21:00)
[2017-07-16] MEDS: Ipratropium/Albuterol Neb 3 ML IH SCH ×3 (04:14→11:08)
[2017-07-16] MEDS: *HR* Heparin 5,000 UNIT/ML VIAL SQ SCH (05:13)
[2017-07-16] MEDS: MethylPREDNISolone 40 MG/ML VIAL IVP SCH (05:13)
[2017-07-16] MEDS ORDERED: Insulin LISPRO 300 UNITS/3 ML VIAL SQ SCH (07:30)
[2017-07-16] MEDS: Aspirin Enteric Coated 81 MG Tablet PO SCH (07:53)
[2017-07-16] MEDS: Nicotine 14 MG PATCH.TD24 TD SCH (07:54)
[2017-07-16] MEDS: (Fluticasone/Vilanterol [Breo Ellipta 100-25 Mcg Inh]) IH SCH (07:59)
[2017-07-16 08:09] VITALS: BP 147/80
[2017-07-16 08:35] LABS: BUN/Creatinine Ratio 18 (6-26); Blood Urea Nitrogen 24 mg/dL (8-23); Calcium 8.1 mg/dL (8.6-10.3); Carbon Dioxide 25 mEq/L (23-29); Chloride 104 mEq/L (98-107); Glucose 198 mg/dL (70-105); Osmolality,Calculated 294 (280-300); Potassium 4.2 mEq/L (3.5-5.1); Sodium 137 mEq/L (136-145); eGFR For African Americans > 60 (> 60); eGFR For Non-African Americans 53 (> 60)
== END 2017-07-16 11:32 | disposition home or self-care (01) ==
LOC: EMEROO 09:26 → 3BNU 09:26
PROVIDERS: ADMIT Internal Medicine; ATTEND Registered Nurse

== ENCOUNTER 2017-09-08 13:20 | Observation (INO) ==
--- NOTE | 2017-09-08 13:48 | Emergency Department Note ---
Disposition Clinical Impression: Acute exacerbation of chronic obstructive pulmonary disease (COPD), Smoking history, Increased oxygen demand Disposition: Admitted As Inpatient Condition: Fair General Adult HPI - General Chief complaint: ED Shortness of Breath/Dyspnea Stated complaint: TOMAS Time Seen by Provider: 09/08/17 13:44 Source: patient, family Limitations: no limitations - History of Present Illness Pain Scale: 0 - Related Data Home Medications Medication Instructions Recorded Confirmed Albuterol Sulfate [Albuterol 2 puff IH Q4HR PRN 01/13/15 09/08/17 Inhaler] Aspirin Enteric Coated [Aspirin EC] 81 mg PO QAM 01/13/15 09/08/17 Fluticasone/Vilanterol [Breo 1 puff IH DAILY 07/12/17 09/08/17 Ellipta 100-25 Mcg INH] Isosorbide DInitrate [Isosorbide 10 mg PO BID 07/12/17 09/08/17 Dinitrate] Albuterol Neb [Proventil Neb] 2.5 mg IH TID PRN 09/08/17 09/08/17 Cholecalciferol (D-3) [Vitamin D] 1,000 unit PO DAILY 09/08/17 09/08/17 Multivit-Min/FA/Lycopen/Lutein 1 each PO DAILY 09/08/17 09/08/17 [Centrum Silver Tablet] Oxygen 3 l NS AD 09/08/17 09/08/17 Allergies Allergy/AdvReac Type Severity Reaction Status Date / Time No Known Allergies Allergy Verified 01/13/15 16:00 Past Medical History - Past Medical History Medical history: Reports: COPD Surgical history: Reports: cholecystectomy, other Psychiatric history: Reports: no psych history - Social History Smoking Status: Current every day smoker Smokeless Tobacco Status: Yes Alcohol use: Reports: none Drug use: Reports: none Physical Exam - General Limitations: no limitations General appearance: alert, in no apparent distress Course Vital Signs Temperature 98.0 F 09/08/17 13:24 Pulse Rate 100 09/08/17 13:24 Respiratory Rate 26 09/08/17 13:24 Blood Pressure 135/76 09/08/17 13:24 O2 Sat by Pulse Oximetry 95 09/08/17 13:24 Temperature 98.5 F 09/08/17 18:47 Pulse Rate 87 09/08/17 18:47 Respiratory Rate 16 09/08/17 18:47 Blood Pressure 140/77 09/08/17 18:47 O2 Sat by Pulse Oximetry 96 09/08/17 18:47 Oxygen Delivery Oxygen Delivery Nasal Cannula Medical Decision Making - Lab Data Result diagrams: 09/08/17 13:59 09/08/17 13:59 Lab Results 09/08/17 09/08/17 09/08/17 Range/Units 13:59 13:59 13:59 WBC 7.2 (4.3-11.1) K/mcL RBC 5.02 (4.19-5.50) M/mcL Hgb 15.2 (12.9-16.9) g/dL Hct 44.5 (37.5-50.1) % MCV 88.6 (83.0-100.0) fL MCH 30.3 (28.0-33.3) pg MCHC 34.2 (31.6-35.5) g/dL RDW 13.4 (11.5-14.5) % Plt Count 278 (140-400) K/mcL MPV 9.0 L (9.4-12.4) fL Immature Gran % 0.4 (0-4) % Seg Neutrophils % 80.6 % Lymphocytes % 13.5 % Monocytes % 2.1 % Eosinophils % 3.1 % Basophils % 0.3 % Neutrophils # 5.8 (1.6-8.9) K/mcL Lymphocytes # 1.0 (0.6-4.6) K/mcL Monocytes # 0.2 (0.0-1.3) K/mcL Eosinophils # 0.2 (0.0-0.6) K/mcL Basophils # 0.0 (0.0-0.2) K/mcL Nucleated RBCs/100 WBC 0.4 H (0) /100 WBC PT 12.1 (9.4-12.1) Seconds INR 1.1 Sodium 138 (136-145) mEq/L Potassium 3.2 L (3.5-5.1) mEq/L Chloride 103 (98-107) mEq/L Carbon Dioxide 24 (23-29) mEq/L BUN 8 (8-23) mg/dL Creatinine 0.93 (0.70-1.30) mg/dL Est GFR ( Amer) > 60 (> 60) Est GFR (Non-Af Amer) > 60 (> 60) BUN/Creatinine Ratio 9 (6-26) Glucose 167 H (70-105) mg/dL Calculated Osmolality 288 (280-300) Calcium 8.7 (8.6-10.3) mg/dL Magnesium 1.8 (1.6-2.6) mg/dL Total Bilirubin 0.6 (0.3-1.0) mg/dL AST 15 (13-39) Units/L ALT 15 (7-52) Units/L Alkaline Phosphatase 80 (34-104) Units/L Troponin I < 0.03 (< 0.04) ng/mL B-Natriuretic Peptide (Less than 100) pg/mL Serum Total Protein 6.4 (6.4-8.9) g/dL Albumin 3.4 L (3.5-5.7) g/dL Globulin 3.0 (2.4-3.5) g/dL Albumin/Globulin Ratio 1.1 (1.1-2.2) 09/08/17 Range/Units 13:59 WBC (4.3-11.1) K/mcL RBC (4.19-5.50) M/mcL Hgb (12.9-16.9) g/dL Hct (37.5-50.1) % MCV (83.0-100.0) fL MCH (28.0-33.3) pg MCHC (31.6-35.5) g/dL RDW (11.5-14.5) % Plt Count (140-400) K/mcL MPV (9.4-12.4) fL Immature Gran % (0-4) % Seg Neutrophils % % Lymphocytes % % Monocytes % % Eosinophils % % Basophils % % Neutrophils # (1.6-8.9) K/mcL Lymphocytes # (0.6-4.6) K/mcL Monocytes # (0.0-1.3) K/mcL Eosinophils # (0.0-0.6) K/mcL Basophils # (0.0-0.2) K/mcL Nucleated RBCs/100 WBC (0) /100 WBC PT (9.4-12.1) Seconds INR Sodium (136-145) mEq/L Potassium (3.5-5.1) mEq/L Chloride (98-107) mEq/L Carbon Dioxide (23-29) mEq/L BUN (8-23) mg/dL Creatinine (0.70-1.30) mg/dL Est GFR ( Amer) (> 60) Est GFR (Non-Af Amer) (> 60) BUN/Creatinine Ratio (6-26) Glucose (70-105) mg/dL Calculated Osmolality (280-300) Calcium (8.6-10.3) mg/dL Magnesium (1.6-2.6) mg/dL Total Bilirubin (0.3-1.0) mg/dL AST (13-39) Units/L ALT (7-52) Units/L Alkaline Phosphatase (34-104) Units/L Troponin I (< 0.04) ng/mL B-Natriuretic Peptide 83 (Less than 100) pg/mL Serum Total Protein (6.4-8.9) g/dL Albumin (3.5-5.7) g/dL Globulin (2.4-3.5) g/dL Albumin/Globulin Ratio (1.1-2.2) Attestation Statement - Attestation Attestation: I examined this patient and my medical decision-making was reviewed with the Resident Physician. I agree with the documented findings, disposition and treatment plan as described except to the extent set forth below. [id number] time provided Patient arrives complaining of dyspnea. He has a history of intermittent oxygen dependent COPD as well as active tobacco use. He is able to speak in full sentences on exam
[2017-09-08] MEDS ORDERED: Ipratropium/Albuterol Neb 3 ML IH ONE (13:49)
[2017-09-08] MEDS ORDERED: predniSONE 20 MG TABLET PO ONE (13:49)
--- NOTE | 2017-09-08 14:01 | Emergency Department Note ---
Disposition Clinical Impression: Acute exacerbation of chronic obstructive pulmonary disease (COPD), Smoking history, Increased oxygen demand Disposition: Admitted As Inpatient Condition: Fair Forms: ED Satisfaction Letter Time of Disposition: 15:29 General Adult HPI - General Chief complaint: ED Shortness of Breath/Dyspnea Stated complaint: TOMAS Time Seen by Provider: 09/08/17 13:44 Source: patient, family Limitations: no limitations Nursing Notes Reviewed: Yes Vital Signs Reviewed: Yes - History of Present Illness HPI Narrative: Patient is a 76-year-old male that presents to the emergency department with onset of shortness of breath. Patient states that this is been ongoing for the past 4 days and progressively getting worse. Patient states that he does have oxygen at home but does not usually wear it area but he states that he has been requiring 3 L of oxygen at home. Patient states that he has a home health nurse that comes to see him and she listened to his lungs and recommended that he go to the ER. Patient states that he had been admitted to the hospital in July for bronchitis and was required to stay for 4 days. Patient states that this feels similar to that episode. Pain Scale: 0 - Related Data Home Medications Medication Instructions Recorded Confirmed Albuterol Sulfate [Albuterol 1 - 2 puff IH Q4HR PRN 01/13/15 07/12/17 Inhaler] Aspirin Enteric Coated [Aspirin EC] 81 mg PO QAM 01/13/15 07/12/17 Fluticasone/Vilanterol [Breo 1 puff IH DAILY 07/12/17 07/12/17 Ellipta 100-25 Mcg INH] Isosorbide DInitrate [Isosorbide 10 mg PO BID 07/12/17 07/12/17 Dinitrate] Albuterol Neb [Proventil Neb] 2.5 mg IH TID PRN 09/08/17 09/08/17 Cholecalciferol (D-3) [Vitamin D] 1,000 unit PO DAILY 09/08/17 09/08/17 Multivit-Min/FA/Lycopen/Lutein 1 each PO DAILY 09/08/17 09/08/17 [Centrum Silver Tablet] Oxygen 3 l NS AD 09/08/17 09/08/17 Allergies Allergy/AdvReac Type Severity Reaction Status Date / Time No Known Allergies Allergy Verified 01/13/15 16:00 All systems ED: reviewed and negative except as stated. Cardiovascular: Denies: chest pain Respiratory: Reports: cough Gastrointestinal: Denies: abdominal pain, nausea, vomiting Past Medical History - Past Medical History Medical history: Reports: COPD Surgical history: Reports: cholecystectomy, other Psychiatric history: Reports: no psych history - Social History Smoking Status: Current every day smoker Smokeless Tobacco Status: Yes Alcohol use: Reports: none Drug use: Reports: none Physical Exam - General Limitations: no limitations General appearance: alert, in no apparent distress - Head Head exam: atraumatic, normocephalic - Eye Eye exam: Present: normal appearance, EOMI - Neck Neck exam: Present: normal inspection, full ROM, trachea midline - Respiratory Respiratory exam: Present: wheezes (Bilaterally). Absent: respiratory distress - Cardiovascular Cardiovascular exam: Present: regular rate, normal rhythm, normal heart sounds, +S1, +S2 - Abdominal Exam Abdominal exam: Present: soft, Non-Tender, normal bowel sounds - Neurological Exam Neurological exam: Present: alert, oriented X3 - Psychiatric Psychiatric exam: Present: normal affect, normal mood - Skin Skin exam: Present: warm, dry, intact Course Vital Signs Temperature 98.0 F 09/08/17 13:24 Pulse Rate 100 09/08/17 13:24 Respiratory Rate 26 09/08/17 13:24 Blood Pressure 135/76 09/08/17 13:24 O2 Sat by Pulse Oximetry 95 09/08/17 13:24 Temperature 98.0 F 09/08/17 13:24 Pulse Rate 80 09/08/17 15:19 Respiratory Rate 13 09/08/17 15:19 Blood Pressure 152/87 09/08/17 15:19 O2 Sat by Pulse Oximetry 95 09/08/17 15:19 Oxygen Delivery Oxygen Delivery Nasal Cannula Medical Decision Making - [facility] Narrative Medical decision making narrative: Due to the patient having shortness of breath we will obtain a CBC, BMP, troponin chest x-ray and EKG. Patient will also be given steroids and a reading treatment here in the emergency department. Due to the patient having recently been hospitalized approximately one month ago for similar symptoms and returning the patient will likely need to be admitted to the hospital for further evaluation and management. Patient's troponin was negative. The chest x-ray was stable and did not show any acute changes. The EKG showed a sinus rhythm. The patient did improve with DuoNeb breathing treatments however he is still having increased oxygen demand so he will need to be admitted to the hospital for further evaluation and management. I called and spoke with the hospitalist Dr. Melgar and he has accepted the patient to their service. The patient will be admitted to the hospital at this time. - Lab Data Lab results reviewed: Yes I reviewed the patient's lab results. Result diagrams: 09/08/17 13:59 09/08/17 13:59 Lab Results 09/08/17 09/08/17 09/08/17 Range/Units 13:59 13:59 13:59 WBC 7.2 (4.3-11.1) K/mcL RBC 5.02 (4.19-5.50) M/mcL Hgb 15.2 (12.9-16.9) g/dL Hct 44.5 (37.5-50.1) % MCV 88.6 (83.0-100.0) fL MCH 30.3 (28.0-33.3) pg MCHC 34.2 (31.6-35.5) g/dL RDW 13.4 (11.5-14.5) % Plt Count 278 (140-400) K/mcL MPV 9.0 L (9.4-12.4) fL Immature Gran % 0.4 (0-4) % Seg Neutrophils % 80.6 % Lymphocytes % 13.5 % Monocytes % 2.1 % Eosinophils % 3.1 % Basophils % 0.3 % Neutrophils # 5.8 (1.6-8.9) K/mcL Lymphocytes # 1.0 (0.6-4.6) K/mcL Monocytes # 0.2 (0.0-1.3) K/mcL Eosinophils # 0.2 (0.0-0.6) K/mcL Basophils # 0.0 (0.0-0.2) K/mcL Nucleated RBCs/100 WBC 0.4 H (0) /100 WBC PT 12.1 (9.4-12.1) Seconds INR 1.1 Sodium 138 (136-145) mEq/L Potassium 3.2 L (3.5-5.1) mEq/L Chloride 103 (98-107) mEq/L Carbon Dioxide 24 (23-29) mEq/L BUN 8 (8-23) mg/dL Creatinine 0.93 (0.70-1.30) mg/dL Est GFR ( Amer) > 60 (> 60) Est GFR (Non-Af Amer) > 60 (> 60) BUN/Creatinine Ratio 9 (6-26) Glucose 167 H (70-105) mg/dL Calculated Osmolality 288 (280-300) Calcium 8.7 (8.6-10.3) mg/dL Magnesium 1.8 (1.6-2.6) mg/dL Total Bilirubin 0.6 (0.3-1.0) mg/dL AST 15 (13-39) Units/L ALT 15 (7-52) Units/L Alkaline Phosphatase 80 (34-104) Units/L Troponin I < 0.03 (< 0.04) ng/mL B-Natriuretic Peptide (Less than 100) pg/mL Serum Total Protein 6.4 (6.4-8.9) g/dL Albumin 3.4 L (3.5-5.7) g/dL Globulin 3.0 (2.4-3.5) g/dL Albumin/Globulin Ratio 1.1 (1.1-2.2) 09/08/17 Range/Units 13:59 WBC (4.3-11.1) K/mcL RBC (4.19-5.50) M/mcL Hgb (12.9-16.9) g/dL Hct (37.5-50.1) % MCV (83.0-100.0) fL MCH (28.0-33.3) pg MCHC (31.6-35.5) g/dL RDW (11.5-14.5) % Plt Count (140-400) K/mcL MPV (9.4-12.4) fL Immature Gran % (0-4) % Seg Neutrophils % % Lymphocytes % % Monocytes % % Eosinophils % % Basophils % % Neutrophils # (1.6-8.9) K/mcL Lymphocytes # (0.6-4.6) K/mcL Monocytes # (0.0-1.3) K/mcL Eosinophils # (0.0-0.6) K/mcL Basophils # (0.0-0.2) K/mcL Nucleated RBCs/100 WBC (0) /100 WBC PT (9.4-12.1) Seconds INR Sodium (136-145) mEq/L Potassium (3.5-5.1) mEq/L Chloride (98-107) mEq/L Carbon Dioxide (23-29) mEq/L BUN (8-23) mg/dL Creatinine (0.70-1.30) mg/dL Est GFR ( Amer) (> 60) Est GFR (Non-Af Amer) (> 60) BUN/Creatinine Ratio (6-26) Glucose (70-105) mg/dL Calculated Osmolality (280-300) Calcium (8.6-10.3) mg/dL Magnesium (1.6-2.6) mg/dL Total Bilirubin (0.3-1.0) mg/dL AST (13-39) Units/L ALT (7-52) Units/L Alkaline Phosphatase (34-104) Units/L Troponin I (< 0.04) ng/mL B-Natriuretic Peptide 83 (Less than 100) pg/mL Serum Total Protein (6.4-8.9) g/dL Albumin (3.5-5.7) g/dL Globulin (2.4-3.5) g/dL Albumin/Globulin Ratio (1.1-2.2) - Radiology Data Radiology results reviewed: Yes I reviewed the patient's radiology results. Chest X-Ray 09/08/17 13:48 IMPRESSION: Stable chest chronic scarring right lung apex and left lung base in a patient with underlying emphysematous changes. D/ / 09/08/2017 15:15:47 Domingo Curiel MD / [email or web address] Interpreting Provider: Domingo Curiel MD - EKG Data EKG #1 EKG attestation: Yes I reviewed and interpreted this EKG. EKG results narrative: EKG showed a sinus rhythm at a rate of 99 bpm, HI interval of 154, QRS duration of 109, QTC of 421. No STEMI noted on EKG. This is compared to previous EKG on 07/12/17 which showed a rhythm of sinus tachycardia at a rate of 104. There is no significant changes noted between the 2 EKGs.
[2017-09-08 14:17] LABS: Basophils % 0.3 %; Eosinophils # 0.2 K/mcL (0.0-0.6); Eosinophils % 3.1 %; Hematocrit 44.5 % (37.5-50.1); Hemoglobin 15.2 g/dL (12.9-16.9); Immature Granulocytes % 0.4 % (0-4); Lymphocytes % 13.5 %; Mean Corpuscular HGB Conc 34.2 g/dL (31.6-35.5); Mean Corpuscular Hemoglobin 30.3 pg (28.0-33.3); Mean Corpuscular Volume 88.6 fL (83.0-100.0); Monocytes # 0.2 K/mcL (0.0-1.3); Monocytes % 2.1 %; Neutrophils # 5.8 K/mcL (1.6-8.9); Nucleated Red Blood Cells 0.4 /100 WBC (0); Platelet Count 278 K/mcL (140-400); Red Blood Count 5.02 M/mcL (4.19-5.50); Red Cell Distribution Width 13.4 % (11.5-14.5); Segmented Neutrophils % 80.6 %
[2017-09-08 14:24] LABS: INR 1.1; Prothrombin Time 12.1 Seconds (9.4-12.1)
[2017-09-08 14:44] LABS: Troponin I < 0.03 ng/mL (< 0.04)
[2017-09-08 14:56] LABS: Alanine Aminotransferase 15 Units/L (7-52); Albumin 3.4 g/dL (3.5-5.7); Albumin/Globulin Ratio 1.1 (1.1-2.2); Alkaline Phosphatase 80 Units/L (34-104); Aspartate Amino Transferase 15 Units/L (13-39); BUN/Creatinine Ratio 9 (6-26); Bilirubin,Total 0.6 mg/dL (0.3-1.0); Blood Urea Nitrogen 8 mg/dL (8-23); Calcium 8.7 mg/dL (8.6-10.3); Carbon Dioxide 24 mEq/L (23-29); Chloride 103 mEq/L (98-107); Glucose 167 mg/dL (70-105); Magnesium 1.8 mg/dL (1.6-2.6); Osmolality,Calculated 288 (280-300); Potassium 3.2 mEq/L (3.5-5.1); Sodium 138 mEq/L (136-145); Total Protein 6.4 g/dL (6.4-8.9); eGFR For African Americans > 60 (> 60); eGFR For Non-African Americans > 60 (> 60)
[2017-09-09] MEDS ORDERED: Ipratropium/Albuterol Neb 3 ML IH PRN (00:05)
[2017-09-09] MEDS ORDERED: *HR* Dextrose 50 % in Water (Syg) 50 ML SYRINGE IVP PRN (00:46)
[2017-09-09] MEDS ORDERED: D5% in Water 1,000 ML IVC PRN (00:46)
[2017-09-09] MEDS ORDERED: Dextrose Gel 15 GM/37.5 ML TUBE PO PRN ×2 (00:46)
--- NOTE | 2017-09-09 00:56 | Internal Med History&Physical ---
<Ashley Hernadez H - Last Filed: 09/09/17 01:08> Date of Encounter: 09/09/17 Time of Encounter: 00:52 Internal Medicine - H&P: HPI Chief complaint: shortness of breath Admitted From: Emergency Dept Plans for Post Hospital Care: Home History of present illness: Mr. Menjivar is a 76 year old male with past medical history of COPD and Crohn' s enterocolitis s/p resection presented to [facility] on 04/2018 with chief complaints of shortness of breath. Patient states his dyspnea began 3 days ago with associated dry cough and nasal congestion. He states he is on at home oxygen, however, he rarely uses it. He has been using it over the past 3 days and did not notice improvement in symptoms. Patient smokes 1 PPD of cigarettes. He was hospitalized for COPD exacerbation and bronchitis 2 months ago. He was treated with Levaquin, steroids, and bronchodilators during that hospital admission. Patient denies any fevers, chills, diaphoresis, nausea, vomiting, or chest pain. He denies ever having a LHC. He denies lower extremity swelling or weakness. He denies facial pain, headaches, dizziness, or lightheadedness. He denies orthopnea. During examination, he is resting comfortably and states that his breathing has improved since getting a breathing treatment in the ED. Past Med Surg Social Fam HX - Past Medical History Attestation: Yes The following information was validated with the patient. Source: patient Medical history: COPD, other (crohn's disease) Psychiatric history: no psych history - Past Surgical History Surgical History: cholecystectomy, other - Social History Smoking Status: Current every day smoker Smokeless Tobacco Status: Yes Alcohol use: none Drug use: none - Family History Brother Family Member Ethnicity: Non- Living Status: Hx Family Endocrine Disorder: Yes (Gallstones) Sister Family Member Ethnicity: Non- Living Status: Still Living Hx Family Cardiac Disorders: Yes (Stroke) Mother Family Member Ethnicity: Non- Living Status: Hx Family Cardiac Disorders: No Hx Family Respiratory Disorders: No Hx Family Cancer: Yes (Liver) Hx Family GI Disorders: No Hx Family Endocrine Disorder: Yes (Gallstones) Hx Family Neuromuscular Disorders: No Hx Family Neurologic Disorders: No Hx Family HEENT Disorders: No Hx Family Autoimmune Disorders: No Father Family Member Ethnicity: Non- Living Status: Hx Family Cardiac Disorders: Yes (Stroke) Hx Family Respiratory Disorders: No Hx Family Cancer: No Hx Family GI Disorders: No Hx Family Endocrine Disorder: No Hx Family Neuromuscular Disorders: No Hx Family Neurologic Disorders: No Hx Family HEENT Disorders: No Hx Family Autoimmune Disorders: No Internal Medicine - H&P: Meds Albuterol Sulfate [Albuterol Inhaler] 2 puff IH Q4HR PRN 01/13/15 [History] Aspirin Enteric Coated [Aspirin EC] 81 mg PO QAM 01/13/15 [History] Fluticasone/Vilanterol [Breo Ellipta 100-25 Mcg INH] 1 puff IH DAILY 07/12/17 [ History] Isosorbide DInitrate [Isosorbide Dinitrate] 10 mg PO BID 07/12/17 [History] Albuterol Neb [Proventil Neb] 2.5 mg IH TID PRN 09/08/17 [History] Cholecalciferol (D-3) [Vitamin D] 1,000 unit PO DAILY 09/08/17 [History] Multivit-Min/FA/Lycopen/Lutein [Centrum Silver Tablet] 1 each PO DAILY 09/08/17 [History] Oxygen 3 l NS AD 09/08/17 [History] 3 Allergy/AdvReac Type Severity Reaction Status Date / Time No Known Allergies Allergy Verified 01/13/15 16:00 All Systems PM: A 10-system review of systems was performed and is negative for pertinent findings except as documented above in the HPI. - Constitutional Constitutional: no chills, no fever(s), no night sweats, no weakness - EENT Nose, mouth and throat: nasal congestion, other (adentulous), no facial pain, no neck mass, no sinus pain, no sinus pressure, no sore throat - Cardiovascular Cardiovascular ROS IM: dyspnea, no chest pain, no claudication, no diaphoresis, no edema, no irregular heart rhythm, no lightheadedness, no orthopnea, no palpitations, no paroxysmal nocturnal dyspnea, no syncope - Respiratory Respiratory: cough, dyspnea, wheezing, no chest congestion, no change in phlegm color, no pain with cough - Gastrointestinal Gastrointestinal: no change in stool character, no coffee ground emesis, no constipation, no hematemesis, no hematochezia, no loose stools, no melena, no nausea - Genitourinary Genitourinary ROS male: no dysuria, no urinary frequency, no urinary hesitancy - Integumentary Integumentary IM: no erythema, no rash - Neurological Neurological ROS: no frequent falls, no headache(s), no weakness - Allergic/Immunologic Allergic/Immunologic: no throat swelling - Constitutional Vitals: Temp Pulse Resp BP Pulse Ox 97.6 F 66 15 146/75 97 09/08/17 22:33 09/08/17 22:33 09/08/17 22:33 09/08/17 22:33 09/08/17 22:33 General appearance: Present: cooperative, A&O X 3, pleasant, no acute distress, answers questions appropriately - Head Head exam: Present: atraumatic, normocephalic - Eye Eye exam: Present: PERRL, conjuntiva pink, sclera anicteric Pupils: Present: PERRL - Neck Neck exam general surgery: Present: supple, trachea midline. Absent: lymphadenopathy Additional comments: adentulous. No erythema in OP. - Respiratory Respiratory exam: Present: decreased breath sounds, rales (left sided basilar ) , wheezes. Absent: accessory muscle use, rhonchi - Cardiovascular Cardiovascular exam: Present: irregular rhythm, +S1, +S2. Absent: diastolic murmur, gallop, rubs, systolic murmur - GI/Abdominal GI/Abdominal exam: Present: normal bowel sounds, soft, no peritoneal signs. Absent: distended, firm, guarding, tenderness - Extremities Exam Extremities exam: Present: warm, radial pulses palpable and symmetrical. Absent : calf tenderness, cyanotic, pedal edema - Neurological Exam Neurological exam: Present: CN II-XII intact, oriented X3, no focal deficits. Absent: pronater drift, facial droop, speech deficit - Skin Skin exam: Present: dry, intact Internal Med - H&P Results - Labs CBC & Chem 7: 09/08/17 13:59 09/08/17 13:59 - Assessment and plan (1) Acute exacerbation of chronic obstructive airways disease Current Visit: No Status: Acute Assessment and plan: 76 yo male with admission for COPD exacerbation 2 months ago here with 3 day ho SOB, cough, and nasal congestion. -Continue duonebs q4hr PRN -Prednisone PO 40mg daily -Telemetry -Vitals, pulse ox q4hr -will give low dose ss insulin coverage due to elevated sugar while giving steroids. (2) Hypokalemia Current Visit: No Status: Chronic Assessment and plan: Potassium chloride 40 meq PO -on telemetry (3) Tobacco abuse Current Visit: No Status: Acute Assessment and plan: Nicotine replacement therapy (4) DVT prophylaxis Current Visit: No Status: Acute Assessment and plan: Heparin 5000 SQ BID (5) Electrocardiogram abnormal Current Visit: Yes Status: Acute Assessment and plan: EKG with ST elevation AVR, ST depression in V3-V6 suggestive of anterolateral ischemia. Q waves in II, III and AVF probably old inferior NE. -Will trend troponins q6hr x 3 sets -EKG in the morning - Time Spent With Patient Total time spent is greater than 50% in coordination of care (as documented) at patient's floor/unit and/or counseling patient: <Mayo Doe - Last Filed: 09/09/17 03:05> Date of Encounter: 09/09/17 Time of Encounter: 01:30 - Constitutional Constitutional: no chills, no fever(s) - EENT Nose, mouth and throat: nasal congestion, no nasal discharge - Cardiovascular Cardiovascular ROS IM: dyspnea, no chest pain, no diaphoresis - Respiratory Respiratory: cough, dyspnea, wheezing, no pain on inspiration, no chest congestion, no excessive phlegm production, no change in phlegm color, no pain with cough - Gastrointestinal Gastrointestinal: no abdominal pain, no diarrhea, no vomiting - Genitourinary Genitourinary ROS male: no dysuria, no flank pain, no hematuria - Integumentary Integumentary IM: no rash, no jaundice - Psychiatric Psychiatric: no anxiety, no depression - Constitutional Vitals: Temp Pulse Resp BP Pulse Ox 97.6 F 66 15 146/75 97 09/08/17 22:33 09/08/17 22:33 09/08/17 22:33 09/08/17 22:33 09/08/17 22:33 General appearance: Present: cooperative, A&O X 3, pleasant, no acute distress - Eye Eye exam: Present: PERRL. Absent: scleral icterus - ENT ENT exam: Present: mucous membranes dry, normal exam - Neck Neck exam general surgery: Present: supple. Absent: tenderness - Respiratory Respiratory exam: Present: decreased breath sounds, prolonged expiratory phase, rhonchi, wheezes. Absent: chest wall tenderness, rales, respiratory distress - Cardiovascular Cardiovascular exam: Present: +S1, +S2. Absent: diastolic murmur, systolic murmur - GI/Abdominal GI/Abdominal exam: Present: normal bowel sounds, soft. Absent: hepatomegaly, splenomegaly, tenderness - Extremities Exam Extremities exam: Present: warm. Absent: calf tenderness - Back Exam Back exam: Present: normal inspection. Absent: CVA tenderness (L), CVA tenderness (R) - Neurological Exam Neurological exam: Present: alert, CN II-XII intact, oriented X3 - Psychiatric Psychiatric exam: Present: normal affect, normal mood - Skin Skin exam: Present: dry, warm. Absent: rash Internal Med - H&P Results - Labs CBC & Chem 7: 09/09/17 01:33 09/08/17 13:59 Labs: Short CBC 09/09/17 Range/Units 01:33 WBC 4.9 (4.3-11.1) K/mcL Hgb 14.3 (12.9-16.9) g/dL Hct 42.0 (37.5-50.1) % Plt Count 274 (140-400) K/mcL Neutrophils # 4.1 (1.6-8.9) K/mcL - EKG Data -: EKG Interpreted by Myself - EKG Data Prior EKG available for review: no EKG comments: 09/09/17 02:[address]-T depression anterolaterally - Diagnostic Studies Chest x-ray Status: image reviewed by me (negative) - Attending Attestation I discussed patient [place], PMH, ROS, lab data, and exam findings with Dr. Hernadez. I then saw and examined patient independently as well. Patient appears stable and in no significant distress. He denies chest pain. EKG suggests some ischemia. We will proceed with serial troponins and EKG's. He has no leukocytosis or fever. His CXR does not suggest pneumonia. I am not inclined to start antibiotics at this time. We will proceed with steroids and aerosols and monitor clinically. I advised patient on the need to quit smoking. Patient reluctant to quit. Other than my comments above and noted exam findings, I agree with Dr. Hernadez' s assessment and plan. - Assessment and plan (1) Hypokalemia Current Visit: No Status: Chronic (2) Acute exacerbation of chronic obstructive airways disease Current Visit: No Status: Acute (3) Tobacco abuse Current Visit: No Status: Acute (4) DVT prophylaxis Current Visit: No Status: Acute (5) Electrocardiogram abnormal Current Visit: Yes Status: Acute - Time Spent With Patient Total time spent is greater than 50% in coordination of care (as documented) at patient's floor/unit and/or counseling patient:
[2017-09-09 02:37] LABS: Basophils % 0.2 %; Hemoglobin 14.3 g/dL (12.9-16.9); Immature Granulocytes % 0.8 % (0-4); Lymphocytes # 0.8 K/mcL (0.6-4.6); Lymphocytes % 15.4 %; Mean Corpuscular Hemoglobin 30.2 pg (28.0-33.3); Mean Corpuscular Volume 88.6 fL (83.0-100.0); Mean Platelet Volume 9.2 fL (9.4-12.4); Monocytes # 0.1 K/mcL (0.0-1.3); Monocytes % 1.4 %; Neutrophils # 4.1 K/mcL (1.6-8.9); Platelet Count 274 K/mcL (140-400); Red Blood Count 4.74 M/mcL (4.19-5.50); Red Cell Distribution Width 13.2 % (11.5-14.5); Segmented Neutrophils % 82.2 %
[2017-09-09] MEDS: *HR* Heparin 5,000 UNIT/ML VIAL SQ SCH ×2 (05:31→18:01)
[2017-09-09 06:42] LABS: Potassium 4.3 mEq/L (3.5-5.1)
[2017-09-09 06:43] LABS: Alanine Aminotransferase 12 Units/L (7-52); Albumin 3.3 g/dL (3.5-5.7); Albumin/Globulin Ratio 1.2 (1.1-2.2); Alkaline Phosphatase 79 Units/L (34-104); Aspartate Amino Transferase 12 Units/L (13-39); BUN/Creatinine Ratio 9 (6-26); Bilirubin,Total 0.7 mg/dL (0.3-1.0); Blood Urea Nitrogen 9 mg/dL (8-23); Calcium 8.6 mg/dL (8.6-10.3); Carbon Dioxide 30 mEq/L (23-29); Chloride 101 mEq/L (98-107); Globulin 2.7 g/dL (2.4-3.5); Glucose 161 mg/dL (70-105); Magnesium 1.8 mg/dL (1.6-2.6); Osmolality,Calculated 284 (280-300); Sodium 136 mEq/L (136-145); eGFR For African Americans > 60 (> 60); eGFR For Non-African Americans > 60 (> 60)
[2017-09-09] MEDS: Nicotine 14 MG PATCH.TD24 TD SCH (07:45)
[2017-09-09] MEDS: Insulin LISPRO 300 UNITS/3 ML VIAL SQ SCH ×3 (07:45→18:02)
[2017-09-09] MEDS: predniSONE 20 MG TABLET PO SCH (07:45)
--- NOTE | 2017-09-09 16:21 | Internal Med Progress Note ---
Date of Encounter: 09/09/17 Time of Encounter: 16:17 - Assessment and plan (1) Acute exacerbation of chronic obstructive airways disease Current Visit: Yes Status: Acute Assessment and plan: 76 male with history of COPD presented with upper respiratory infection symptoms including congestion and shortness of breath. Chest x-ray showed emphysematous change without consolidation. He takes Breo and albuterol at home. He also uses oxygen at home. - Continue perfused prednisone, DuoNeb when necessary plus scheduled. Continue home Breo. - Expect discharge in 2 days. (2) Tobacco abuse Current Visit: No Status: Chronic Assessment and plan: Nicotine replacement therapy (3) DVT prophylaxis Current Visit: Yes Status: Acute Assessment and plan: Heparin 5000 SQ BID (4) Electrocardiogram abnormal Current Visit: Yes Status: Acute Assessment and plan: EKG with ST elevation AVR, ST depression in V3-V6 suggestive of anterolateral ischemia. Q waves in II, III and AVF probably old inferior CT. - Troponin negative 3. No chest pain currently. Continue home medication aspirin and isosorbide. (5) Hypokalemia Current Visit: Yes Status: Acute - Time Spent With Patient Total time spent is greater than 50% in coordination of care (as documented) at patient's floor/unit and/or counseling patient: Greater than 35 minutes - Subjective Interval history: Patient sitting in bed, eating breakfast. He does not appear to have any respiratory distress. - Constitutional Vitals: Temp Pulse Resp BP Pulse Ox 98.2 F 65 14 156/77 97 09/09/17 15:04 09/09/17 15:04 09/09/17 15:04 09/09/17 15:04 09/09/17 15:04 General appearance: Present: cooperative, A&O X 3, pleasant, no acute distress Exam: PHYSICAL EXAMINATION: GENERAL APPEARANCE: The patient is alert, oriented and in no acute distress. HEENT: Head is normocephalic. The sinuses are nontender. Pupils are equal and reactive. The nares are patent. Oropharynx clear without lesions. NECK: Supple without lymphadenopathy. HEART: Regular rate and rhythm. LUNGS: No crackles or wheezes are heard. ABDOMEN: Soft, nontender, nondistended with good bowel sounds heard. Inguinal area is normal. EXTREMITIES: Without cyanosis, clubbing or edema. NEUROLOGICAL: Gross nonfocal. SKIN: Warm and dry without any rash. Internal Medicine: Result - Labs CBC & Chem 7: 09/09/17 01:33 09/09/17 06:03 Labs: Short CBC 09/09/17 Range/Units 01:33 WBC 4.9 (4.3-11.1) K/mcL Hgb 14.3 (12.9-16.9) g/dL Hct 42.0 (37.5-50.1) % Plt Count 274 (140-400) K/mcL Neutrophils # 4.1 (1.6-8.9) K/mcL BMP 09/09/17 06:03 Sodium 136 Potassium 4.3 D Chloride 101 Carbon Dioxide 30 H BUN 9 Creatinine 0.98 Glucose 161 H Calcium 8.6 Cardiac Enzymes 09/09/17 09/09/17 Range/Units 01:33 06:03 Troponin I < 0.03 < 0.03 (< 0.04) ng/mL Liver Function 09/09/17 Range/Units 06:03 Total Bilirubin 0.7 (0.3-1.0) mg/dL AST 12 L (13-39) Units/L ALT 12 (7-52) Units/L Alkaline Phosphatase 79 (34-104) Units/L Albumin 3.3 L (3.5-5.7) g/dL - ABG Interpretation ABG results: PT/INR, D-dimer PT 12.1 Seconds (9.4-12.1) 09/08/17 13:59 Consult Discharge Plan - Plan Referrals: Jono Moon DO [Primary Care Provider] -
[2017-09-10 06:02] LABS: Basophils % 0.1 %; Eosinophils % 0.4 %; Hematocrit 40.3 % (37.5-50.1); Hemoglobin 13.5 g/dL (12.9-16.9); Immature Granulocytes % 0.7 % (0-4); Lymphocytes % 14.5 %; Mean Corpuscular HGB Conc 33.5 g/dL (31.6-35.5); Mean Corpuscular Hemoglobin 30.1 pg (28.0-33.3); Mean Platelet Volume 9.1 fL (9.4-12.4); Monocytes # 0.2 K/mcL (0.0-1.3); Monocytes % 2.4 %; Neutrophils # 5.5 K/mcL (1.6-8.9); Platelet Count 260 K/mcL (140-400); Red Blood Count 4.48 M/mcL (4.19-5.50); Red Cell Distribution Width 13.2 % (11.5-14.5); Segmented Neutrophils % 81.9 %
[2017-09-10] MEDS: *HR* Heparin 5,000 UNIT/ML VIAL SQ SCH ×2 (06:06→17:17)
[2017-09-10 06:24] LABS: BUN/Creatinine Ratio 11 (6-26); Blood Urea Nitrogen 12 mg/dL (8-23); Calcium 8.1 mg/dL (8.6-10.3); Carbon Dioxide 31 mEq/L (23-29); Chloride 103 mEq/L (98-107); Glucose 105 mg/dL (70-105); Osmolality,Calculated 288 (280-300); Potassium 3.9 mEq/L (3.5-5.1); Sodium 139 mEq/L (136-145); eGFR For African Americans > 60 (> 60); eGFR For Non-African Americans > 60 (> 60)
--- NOTE | 2017-09-10 07:03 | Electrocardiograph Report ---
[place] [facility] Test Date: 2017-09-08 Pat Name: Bienvenido Menjivar Department: 104 Room: 3B53 Gender: M Site Supervisor: GINA : [id number] Requested By: William Beltran Order Number: [id number] Reading MD: Ezio Ferguson Measurements Intervals [place] Rate: 99 P: 81 [place]: 154 QRS: 57 QRSD: 109 T: 85 QT: 365 QTc: 421 Interpretive Statements SINUS RHYTHM INDETERMINATE AXIS PROBABLE INFERIOR MYOCARDIAL INFARCTION, PROBABLY OLD POOR R WAVE PROGRESSION Electronically Signed On 09-10-2017 7:01:55 EDT by Ezio Ferguson
[2017-09-10] MEDS: Insulin LISPRO 300 UNITS/3 ML VIAL SQ SCH ×3 (09:06→17:20)
[2017-09-10] MEDS: Nicotine 14 MG PATCH.TD24 TD SCH (09:10)
[2017-09-10] MEDS: predniSONE 20 MG TABLET PO SCH (09:11)
[2017-09-10] MEDS: Multivit/Ca/Min/Fe/FA 1 TAB TABLET PO SCH (09:11)
[2017-09-10] MEDS: Cholecalciferol (D-3) 1,000 UNIT TABLET PO SCH (09:11)
[2017-09-10] MEDS: Aspirin Enteric Coated 81 MG Tablet PO SCH (09:11)
[2017-09-10] MEDS: (Fluticasone/Vilanterol [Breo Ellipta 100-25 Mcg Inh] IH SCH (09:12)
[2017-09-10] MEDS: Ipratropium/Albuterol Neb 3 ML IH SCH ×4 (12:50→23:23)
--- NOTE | 2017-09-10 19:31 | Internal Med Progress Note ---
Date of Encounter: 09/10/17 Time of Encounter: 12:00 - Assessment and plan (1) Acute exacerbation of chronic obstructive airways disease Current Visit: Yes Status: Acute Assessment and plan: Patient has wheezes appears to be diminished in bases. We will continue with steroids home Breo, will increase DuoNeb's to scheduled every 4 hours oxygen as needed (2) Hypokalemia Current Visit: Yes Status: Resolved Assessment and plan: Resolved we will continue to monitor (3) Tobacco abuse Current Visit: No Status: Chronic Assessment and plan: Nicotine patch (4) Electrocardiogram abnormal Current Visit: Yes Status: Acute Assessment and plan: EKG with ST elevation AVR, ST depression in V3-V6 suggestive of anterolateral ischemia. Q waves in II, III and AVF probably old inferior NM. - Troponin negative 3. Continue home medication aspirin and isosorbide.-No chest pain we will continue to monitor (5) DVT prophylaxis Current Visit: Yes Status: Acute Assessment and plan: Heparin 5000 SQ BID - Time Spent With Patient Total time spent is greater than 50% in coordination of care (as documented) at patient's floor/unit and/or counseling patient: - Subjective Interval history: Denies any chest pain at this time he does have scattered wheezes throughout continues with nonproductive cough - Constitutional Vitals: Temp Pulse Resp BP Pulse Ox 98.6 F 65 16 128/70 98 09/10/17 15:00 09/10/17 15:00 09/10/17 15:35 09/10/17 15:35 09/10/17 15:35 General appearance: Present: cooperative, A&O X 3, pleasant, no acute distress - Head Head exam: Present: atraumatic, normocephalic - Eye Eye exam: Present: PERRL, conjuntiva pink, sclera anicteric Pupils: Present: PERRL - Neck Neck exam general surgery: Present: supple, trachea midline. Absent: lymphadenopathy - Respiratory Respiratory exam: Present: wheezes. Absent: accessory muscle use, rales, rhonchi - Cardiovascular Cardiovascular exam: Present: RRR, +S1, +S2. Absent: diastolic murmur, gallop, rubs, systolic murmur - GI/Abdominal GI/Abdominal exam: Present: normal bowel sounds, soft, no peritoneal signs. Absent: distended, tenderness - Extremities Exam Extremities exam: Present: warm, radial pulses palpable and symmetrical. Absent : calf tenderness, cyanotic, pedal edema - Neurological Exam Neurological exam: Present: CN II-XII intact, oriented X3, no focal deficits. Absent: pronater drift, facial droop, speech deficit - Skin Skin exam: Present: dry, intact Internal Medicine: Result - Labs CBC & Chem 7: 09/10/17 05:33 09/10/17 05:33 Labs: Short CBC 09/10/17 Range/Units 05:33 WBC 6.8 (4.3-11.1) K/mcL Hgb 13.5 (12.9-16.9) g/dL Hct 40.3 (37.5-50.1) % Plt Count 260 (140-400) K/mcL Neutrophils # 5.5 (1.6-8.9) K/mcL BMP 09/10/17 05:33 Sodium 139 Potassium 3.9 Chloride 103 Carbon Dioxide 31 H BUN 12 Creatinine 1.09 Glucose 105 Calcium 8.1 L - ABG Interpretation ABG results: PT/INR, D-dimer PT 12.1 Seconds (9.4-12.1) 09/08/17 13:59 Consult Discharge Plan - Plan Referrals: Jono Moon DO [Primary Care Provider] -
[2017-09-11] MEDS: Ipratropium/Albuterol Neb 3 ML IH SCH ×3 (03:24→11:31)
[2017-09-11] MEDS: *HR* Heparin 5,000 UNIT/ML VIAL SQ SCH (06:09)
[2017-09-11 06:13] LABS: Basophils % 0.3 %; Eosinophils % 0.1 %; Hematocrit 35.7 % (37.5-50.1); Hemoglobin 12.1 g/dL (12.9-16.9); Immature Granulocytes % 1.1 % (0-4); Lymphocytes # 0.8 K/mcL (0.6-4.6); Lymphocytes % 11.5 %; Mean Corpuscular HGB Conc 33.9 g/dL (31.6-35.5); Mean Corpuscular Hemoglobin 30.3 pg (28.0-33.3); Mean Corpuscular Volume 89.3 fL (83.0-100.0); Mean Platelet Volume 9.2 fL (9.4-12.4); Monocytes # 0.1 K/mcL (0.0-1.3); Monocytes % 1.6 %; Platelet Count 242 K/mcL (140-400); Red Cell Distribution Width 13.4 % (11.5-14.5); Segmented Neutrophils % 85.4 %
[2017-09-11 06:34] LABS: BUN/Creatinine Ratio 13 (6-26); Blood Urea Nitrogen 15 mg/dL (8-23); Carbon Dioxide 30 mEq/L (23-29); Chloride 100 mEq/L (98-107); Glucose 189 mg/dL (70-105); Osmolality,Calculated 292 (280-300); Potassium 3.8 mEq/L (3.5-5.1); Sodium 138 mEq/L (136-145); eGFR For African Americans > 60 (> 60); eGFR For Non-African Americans 60 (> 60)
[2017-09-11] MEDS: Nicotine 14 MG PATCH.TD24 TD SCH (09:22)
[2017-09-11] MEDS: Cholecalciferol (D-3) 1,000 UNIT TABLET PO SCH (09:22)
[2017-09-11] MEDS: Aspirin Enteric Coated 81 MG Tablet PO SCH (09:22)
[2017-09-11] MEDS: predniSONE 20 MG TABLET PO SCH (09:22)
[2017-09-11] MEDS: Multivit/Ca/Min/Fe/FA 1 TAB TABLET PO SCH (09:22)
[2017-09-11] MEDS: Insulin LISPRO 300 UNITS/3 ML VIAL SQ SCH ×2 (09:25→12:17)
[2017-09-11] MEDS: (Fluticasone/Vilanterol [Breo Ellipta 100-25 Mcg Inh] IH SCH (09:31)
[2017-09-11 12:09] VITALS: BP 122/68
--- NOTE | 2017-09-11 13:52 | Discharge Summary ---
- NOTES TO OUTPATIENT PROVIDER Notes to Outpatient Provider: steroid taper Date of Encounter: 09/12/17 Time of Encounter: 13:47 - Discharge Diagnosis (1) Acute exacerbation of chronic obstructive airways disease Priority: Primary Status: Acute (2) Hypokalemia Priority: Secondary Status: Resolved (3) Tobacco abuse Priority: Secondary Status: Chronic (4) Electrocardiogram abnormal Priority: Secondary Status: Acute Hospital course: Mr. Menjivar is a 76 year old male past medical history of COPD Crohn's enterocolitis status post resection he presented to [facility] on with complaints of shortness of breath dyspnea that began 3 days prior with a dry cough and nasal congestion. He is on home oxygen which he rarely uses however he had 2 rely on oxygen which really did not improve his symptoms. He does smoke 1 pack a day he is been hospitalized approximately 2 months ago with COPD and bronchitis exacerbation. Chest x-ray did show chronic changes lab work was unremarkable patient was admitted for acute exacerbation of COPD he also had some changes on his EKG ST depression V3 V6 Q waves in II, III, and F aVF. troponins were cycled which were negative 3. Patient received bronchodilators as well as steroids his respiratory state did improve patient did feel as if he was ready to be discharged he has 98% on 2-3 L. Advised patient to continue with oxygen use until seen by PCP. I did review EKGs with Dr. Lowry of cardiology who felt these were more pulmonary changes and cardiac. Advised patient to follow-up with PCP given a prescription for steroid taper. Patient verbalized understanding and is ready for discharge. Discharge discussed with: patient - Time Spent with Patient Total time spent providing and/or coordinating discharge services: - Discharge Medications Prescriptions: predniSONE [PredniSONE] 10 mg PO DAILY #23 tablet Home Medications: Albuterol Sulfate [Albuterol Inhaler] 2 puff IH Q4HR PRN 01/13/15 [History] Aspirin Enteric Coated [Aspirin EC] 81 mg PO QAM 01/13/15 [History] Fluticasone/Vilanterol [Breo Ellipta 100-25 Mcg INH] 1 puff IH DAILY 07/12/17 [ History] Isosorbide DInitrate [Isosorbide Dinitrate] 10 mg PO BID 07/12/17 [History] Albuterol Neb [Proventil Neb] 2.5 mg IH TID PRN 09/08/17 [History] Cholecalciferol (D-3) [Vitamin D] 1,000 unit PO DAILY 09/08/17 [History] Multivit-Min/FA/Lycopen/Lutein [Centrum Silver Tablet] 1 each PO DAILY 09/08/17 [History] Oxygen 3 l NS AD 09/08/17 [History] predniSONE [PredniSONE] 10 mg PO DAILY #23 tablet 09/11/17 [Rx] Allergies/Adverse Reactions: 3 Allergy/AdvReac Type Severity Reaction Status Date / Time No Known Allergies Allergy Verified 01/13/15 16:00 Date of admission: 09/08/17 15:47 Primary care physician: Jono Moon DO Consults: 09/09/17 00:06 Consult to Nurse Navigator [CONS] Routine Comment: Discharging clinician: Kaur Rivera Anticipated date of discharge: 09/11/17 - Constitutional Vitals: Temp Pulse Resp BP Pulse Ox 98.4 F 72 14 122/68 98 09/11/17 12:08 09/11/17 12:08 09/11/17 12:08 09/11/17 12:08 09/11/17 12:08 General appearance: Present: cooperative, A&O X 3, pleasant, no acute distress - Patient Status Disposition: Home, Self-Care Condition: Fair Functional capacity at discharge: independent ambulation Overall status at discharge: patient is back to baseline - Discharge Instructions Instructions: Prednisone (By mouth), Chronic Obstructive Pulmonary Disease (DC) , Acute Respiratory Distress Syndrome (DC) Follow Up With: Jono Moon DO [Primary Care Provider] - (Please call Dr. Moon and schedule a follow up appointment for 7-10 days.) - Diet and Activity Activity: increase activity as tolerated, wear oxygen at all times Diet: advance to your usual diet
--- NOTE | 2017-09-16 08:31 | Electrocardiograph Report ---
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
--- NOTE | 2017-09-16 12:05 | Electrocardiograph Report ---
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
== END 2017-09-11 15:16 | disposition home or self-care (01) ==
LOC: EMEROO 13:20 → 3BNU 13:20
PROVIDERS: ADMIT Internal Medicine; ATTEND Registered Nurse

== ENCOUNTER 2019-06-22 11:17 | Inpatient (IN) ==
[2019-06-22] MEDS ORDERED: Tdap (Boostrix) Vaccine 0.5 ML SYRINGE IM ONE (11:27)
[2019-06-22] MEDS ORDERED: Ipratropium/Albuterol Neb 3 ML IH ONE (11:37)
[2019-06-22] MEDS ORDERED: methylPREDNISolone 125 MG/2 ML VIAL IVP ONE (11:37)
[2019-06-22 12:13] LABS: Basophils % 0.3 %; Hematocrit 42.8 % (37.5-50.1); Hemoglobin 14.8 g/dL (12.9-16.9); Immature Granulocytes % 0.8 % (0-4); Lymphocytes # 0.6 K/mcL (0.6-4.6); Lymphocytes % 7.6 %; Mean Corpuscular HGB Conc 34.6 g/dL (31.6-35.5); Mean Corpuscular Hemoglobin 29.5 pg (28.0-33.3); Mean Corpuscular Volume 85.3 fL (83.0-100.0); Mean Platelet Volume 9.4 fL (9.4-12.4); Monocytes # 0.1 K/mcL (0.0-1.3); Monocytes % 1.1 %; Neutrophils # 7.1 K/mcL (1.6-8.9); Platelet Count 223 K/mcL (140-400); Red Blood Count 5.02 M/mcL (4.19-5.50); Red Cell Distribution Width 13.9 % (11.5-14.5); Segmented Neutrophils % 90.2 %; White Blood Count 7.9 K/mcL (4.3-11.1)
[2019-06-22 12:37] LABS: Bilirubin,Urine Small (Negative); Blood,Urine Large (Negative); Clarity,Urine Cloudy (Clear); Color,Urine Dark Yellow (Yellow); Glucose,Urine (UA) Normal (Normal); Ketones,Urine Negative (Negative); Leukocyte Esterase,Urine Negative (Negative); Nitrite,Urine Negative (Negative); PH,Urine 5.5 pH Units (5.0-8.0); Protein,Urine 100 mg/dL (Neg-Trace); Specific Gravity,Urine 1.023 (1.010-1.025); Urobilinogen,Urine Normal (Normal)
[2019-06-22 12:38] LABS: Hyaline Casts,Urine Few per lpf (None-Few)
[2019-06-22 12:40] LABS: Troponin I 0.04 ng/mL (< 0.04)
[2019-06-22 12:56] LABS: Platelet Estimate Normal (Normal)
[2019-06-22 13:00] LABS: Bilirubin,Total 0.7 mg/dL (0.3-1.0); Calcium 8.1 mg/dL (8.6-10.3)
[2019-06-22] MEDS ORDERED: 0.9 % Sodium Chloride 1,000 ML IVC ONE (13:00)
[2019-06-22] MEDS ORDERED: levoFLOXacin 750 MG TABLET PO STA (13:02)
[2019-06-22 14:31] LABS: Granular Casts,Urine Moderate per lpf (None Seen)
[2019-06-22 14:32] LABS: RBC,Urine 50-100 per hpf (0-3); Squamous Epithelial Cell,Urine Moderate per lpf (None-Few)
[2019-06-22 14:34] LABS: Bacteria,Urine Moderate per hpf (None-Few)
[2019-06-22] MEDS ORDERED: Albuterol 2.5 MG/3 ML NEBULIZER IH PRN (16:00)
[2019-06-22] MEDS: Ipratropium/Albuterol Neb 3 ML IH SCH ×2 (17:14→20:05)
[2019-06-22] MEDS ORDERED: Thiamine (B-1) 100 MG in 0.9 % Sodium Chloride 50 ML IVPB STA (17:55)
[2019-06-22 18:51] LABS: Magnesium 1.8 mg/dL (1.6-2.6)
[2019-06-22] MEDS: Budesonide/Formoterol 160/4.5 1 PUFF INH IH SCH (20:05)
[2019-06-22] MEDS: Aspirin Enteric Coated 81 MG Tablet PO SCH (20:13)
[2019-06-22] MEDS: Potassium Chloride Elixir 20 MEQ/15 ML UDC PO SCH (20:54)
[2019-06-22] MEDS ORDERED: NON-FORMULARY MEDICATION 1 EACH EACH (Fluticasone/Umeclidin/Vilanter [Trelegy Ellipta 100- IH SCH (21:00)
[2019-06-22] MEDS: D5% in 0.9% NACL 1,000 ML IVC SCH (22:54)
[2019-06-23] MEDS: Ipratropium/Albuterol Neb 3 ML IH SCH ×7 (00:05→23:58)
[2019-06-23] MEDS: Potassium Chloride Elixir 20 MEQ/15 ML UDC PO SCH ×3 (00:52→11:33)
[2019-06-23 06:26] LABS: Calcium 7.7 mg/dL (8.6-10.3); Magnesium 2.6 mg/dL (1.6-2.6); Phosphorous 3.2 mg/dL (2.7-4.5); Potassium 3.3 mEq/L (3.5-5.1)
[2019-06-23] MEDS: Budesonide/Formoterol 160/4.5 1 PUFF INH IH SCH ×2 (07:24→19:22)
[2019-06-23] MEDS: Tiotropium 18 MCG inhalation IH SCH (07:24)
[2019-06-23] MEDS: D5% in 0.9% NACL 1,000 ML IVC SCH ×2 (07:30→14:01)
[2019-06-23] MEDS: Cholecalciferol (D-3) 1,000 UNIT (25MCG) TABLET PO SCH (08:07)
[2019-06-23] MEDS: sulfaSALAzine 500 MG TABLET PO SCH (08:07)
[2019-06-23] MEDS: Aspirin Enteric Coated 81 MG Tablet PO SCH (08:08)
[2019-06-23] MEDS: predniSONE 20 MG TABLET PO SCH (08:08)
[2019-06-23] MEDS: Multivit/Ca/Min/Fe/FA 1 TAB TABLET PO SCH (08:08)
[2019-06-24] MEDS: D5% in 0.9% NACL 1,000 ML IVC SCH ×2 (00:18→19:34)
[2019-06-24] MEDS: Ipratropium/Albuterol Neb 3 ML IH SCH ×6 (03:37→23:57)
[2019-06-24] MEDS: Budesonide/Formoterol 160/4.5 1 PUFF INH IH SCH ×2 (07:19→19:25)
[2019-06-24] MEDS: Tiotropium 18 MCG inhalation IH SCH (07:20)
[2019-06-24] MEDS ORDERED: levoFLOXacin 500 MG TABLET PO ONE (09:00)
[2019-06-24 09:31] LABS: Hematocrit 38.3 % (37.5-50.1); Hemoglobin 12.7 g/dL (12.9-16.9); Mean Corpuscular HGB Conc 33.2 g/dL (31.6-35.5); Mean Corpuscular Volume 90.5 fL (83.0-100.0); Mean Platelet Volume 9.1 fL (9.4-12.4); Platelet Count 197 K/mcL (140-400); Red Blood Count 4.23 M/mcL (4.19-5.50); Red Cell Distribution Width 14.2 % (11.5-14.5); White Blood Count 7.4 K/mcL (4.3-11.1)
[2019-06-24 09:46] LABS: Calcium 7.8 mg/dL (8.6-10.3); Phosphorous 1.5 mg/dL (2.7-4.5); Potassium 3.6 mEq/L (3.5-5.1)
[2019-06-24] MEDS: Multivit/Ca/Min/Fe/FA 1 TAB TABLET PO SCH (10:07)
[2019-06-24] MEDS: predniSONE 20 MG TABLET PO SCH (10:08)
[2019-06-24] MEDS: Cholecalciferol (D-3) 1,000 UNIT (25MCG) TABLET PO SCH (10:08)
[2019-06-24] MEDS: Aspirin Enteric Coated 81 MG Tablet PO SCH (10:08)
[2019-06-24] MEDS: sulfaSALAzine 500 MG TABLET PO SCH (10:08)
[2019-06-24] MEDS ORDERED: Potassium Phosphate 44 MEQ in 0.9 % Sodium Chloride 250 ML IVPB ONE (10:11)
[2019-06-25 01:55] LABS: BUN/Creatinine Ratio 24 (6-26); Blood Urea Nitrogen 30 mg/dL (8-23); Calcium 7.6 mg/dL (8.6-10.3); Carbon Dioxide 28 mEq/L (23-29); Chloride 102 mEq/L (98-107); Creatine Kinase 293 Units/L (30-223); Glucose 144 mg/dL (70-105); Magnesium 1.8 mg/dL (1.6-2.6); Osmolality,Calculated 295 (280-300); Phosphorous 3.5 mg/dL (2.7-4.5); Potassium 4.9 mEq/L (3.5-5.1); Sodium 138 mEq/L (136-145); eGFR For African Americans > 60 (> 60); eGFR For Non-African Americans 55 (> 60)
[2019-06-25] MEDS: Ipratropium/Albuterol Neb 3 ML IH SCH ×4 (03:42→15:44)
[2019-06-25] MEDS: Budesonide/Formoterol 160/4.5 1 PUFF INH IH SCH ×3 (07:12→20:47)
[2019-06-25] MEDS: Tiotropium 18 MCG inhalation IH SCH (07:12)
[2019-06-25] MEDS: Cholecalciferol (D-3) 1,000 UNIT (25MCG) TABLET PO SCH (09:05)
[2019-06-25] MEDS: Aspirin Enteric Coated 81 MG Tablet PO SCH (09:05)
[2019-06-25] MEDS: Multivit/Ca/Min/Fe/FA 1 TAB TABLET PO SCH (09:05)
[2019-06-25] MEDS: sulfaSALAzine 500 MG TABLET PO SCH (09:05)
[2019-06-25] MEDS: predniSONE 20 MG TABLET PO SCH (09:05)
[2019-06-25] MEDS: levoFLOXacin 500 MG TABLET PO SCH (09:05)
[2019-06-25] MEDS: Albuterol 2.5 MG/3 ML NEBULIZER IH PRN (20:47)
[2019-06-25] MEDS ORDERED: Lactulose Oral Soln 20 GM/30 ML UDC PO SCH (21:00)
[2019-06-26 06:28] LABS: Basophils % 0.8 %; Eosinophils % 0.2 %; Hematocrit 39.5 % (37.5-50.1); Hemoglobin 12.6 g/dL (12.9-16.9); Immature Granulocytes % 1.8 % (0-4); Lymphocytes # 0.7 K/mcL (0.6-4.6); Lymphocytes % 14.9 %; Mean Corpuscular HGB Conc 31.9 g/dL (31.6-35.5); Mean Corpuscular Hemoglobin 29.9 pg (28.0-33.3); Mean Corpuscular Volume 93.6 fL (83.0-100.0); Mean Platelet Volume 9.6 fL (9.4-12.4); Monocytes # 0.2 K/mcL (0.0-1.3); Monocytes % 3.9 %; Neutrophils # 3.8 K/mcL (1.6-8.9); Platelet Count 215 K/mcL (140-400); Red Blood Count 4.22 M/mcL (4.19-5.50); Red Cell Distribution Width 14.1 % (11.5-14.5); Segmented Neutrophils % 78.4 %; White Blood Count 4.9 K/mcL (4.3-11.1)
[2019-06-26 06:43] LABS: BUN/Creatinine Ratio 25 (6-26); Blood Urea Nitrogen 27 mg/dL (8-23); Carbon Dioxide 27 mEq/L (23-29); Chloride 101 mEq/L (98-107); Glucose 120 mg/dL (70-105); Osmolality,Calculated 288 (280-300); Potassium 4.3 mEq/L (3.5-5.1); Sodium 136 mEq/L (136-145); eGFR For African Americans > 60 (> 60); eGFR For Non-African Americans > 60 (> 60)
[2019-06-26 07:03] LABS: Platelet Estimate Normal (Normal)
[2019-06-26] MEDS: Budesonide/Formoterol 160/4.5 1 PUFF INH IH SCH ×2 (07:25→19:40)
[2019-06-26] MEDS: Albuterol 2.5 MG/3 ML NEBULIZER IH PRN (07:25)
[2019-06-26] MEDS: levoFLOXacin 500 MG TABLET PO SCH (10:16)
[2019-06-26] MEDS: Multivit/Ca/Min/Fe/FA 1 TAB TABLET PO SCH (10:16)
[2019-06-26] MEDS: Cholecalciferol (D-3) 1,000 UNIT (25MCG) TABLET PO SCH (10:16)
[2019-06-26] MEDS: sulfaSALAzine 500 MG TABLET PO SCH (10:16)
[2019-06-26] MEDS: Aspirin Enteric Coated 81 MG Tablet PO SCH (10:16)
[2019-06-26] MEDS: predniSONE 20 MG TABLET PO SCH (10:16)
[2019-06-26] MEDS: *HR* Heparin 5,000 UNIT/ML VIAL SQ SCH (17:32)
[2019-06-26] MEDS ORDERED: *HR* Heparin 5,000 UNIT/ML VIAL SQ SCH (18:00)
[2019-06-27 05:49] LABS: Basophils % 0.7 %; Eosinophils % 0.4 %; Hematocrit 41.2 % (37.5-50.1); Hemoglobin 13.4 g/dL (12.9-16.9); Lymphocytes # 0.9 K/mcL (0.6-4.6); Lymphocytes % 15.5 %; Mean Corpuscular HGB Conc 32.5 g/dL (31.6-35.5); Mean Corpuscular Hemoglobin 29.4 pg (28.0-33.3); Mean Corpuscular Volume 90.4 fL (83.0-100.0); Mean Platelet Volume 9.7 fL (9.4-12.4); Monocytes # 0.2 K/mcL (0.0-1.3); Monocytes % 3.7 %; Neutrophils # 4.3 K/mcL (1.6-8.9); Platelet Count 265 K/mcL (140-400); Red Blood Count 4.56 M/mcL (4.19-5.50); Red Cell Distribution Width 14.2 % (11.5-14.5); Segmented Neutrophils % 76.7 %; White Blood Count 5.6 K/mcL (4.3-11.1)
[2019-06-27 06:02] LABS: BUN/Creatinine Ratio 24 (6-26); Blood Urea Nitrogen 27 mg/dL (8-23); Calcium 8.1 mg/dL (8.6-10.3); Carbon Dioxide 28 mEq/L (23-29); Chloride 101 mEq/L (98-107); Glucose 97 mg/dL (70-105); Osmolality,Calculated 289 (280-300); Potassium 4.4 mEq/L (3.5-5.1); Sodium 137 mEq/L (136-145); eGFR For African Americans > 60 (> 60); eGFR For Non-African Americans > 60 (> 60)
[2019-06-27] MEDS: *HR* Heparin 5,000 UNIT/ML VIAL SQ SCH (06:11)
[2019-06-27 06:24] LABS: Platelet Estimate Normal (Normal)
[2019-06-27] MEDS: Albuterol 2.5 MG/3 ML NEBULIZER IH PRN (07:43)
[2019-06-27] MEDS: Budesonide/Formoterol 160/4.5 1 PUFF INH IH SCH (07:43)
[2019-06-27] MEDS: Aspirin Enteric Coated 81 MG Tablet PO SCH (08:57)
[2019-06-27] MEDS: sulfaSALAzine 500 MG TABLET PO SCH (08:57)
[2019-06-27] MEDS: predniSONE 20 MG TABLET PO SCH (08:57)
[2019-06-27] MEDS: levoFLOXacin 500 MG TABLET PO SCH (08:57)
[2019-06-27] MEDS: Multivit/Ca/Min/Fe/FA 1 TAB TABLET PO SCH (08:57)
[2019-06-27] MEDS: Cholecalciferol (D-3) 1,000 UNIT (25MCG) TABLET PO SCH (08:57)
[2019-06-27] MEDS ORDERED: Azithromycin 250 MG TABLET PO SCH (09:24)
[2019-06-27] MEDS ORDERED: Tiotropium 18 MCG inhalation IH SCH (10:00)
[2019-06-27 10:49] VITALS: BP 150/79
[2019-06-27] MEDS: Ipratropium/Albuterol Neb 3 ML IH SCH ×2 (11:44→15:05)
[2019-06-28] MEDS ORDERED: Cefdinir 300 MG CAPSULE PO SCH (09:00)
== END 2019-06-27 16:35 | DRG 871 ==
LOC: EMEROOARM 11:17 → 2ANU 11:17 → SUATTDRO 18:31 → 2ANU 18:51 → SUATTDRO 20:25
PROVIDERS: ADMIT Internal Medicine; ATTEND Student in an Organized Health Care Education/Training Program